=== PATIENT | female | born 1980 | race Caucasian/White ===

== ENCOUNTER 2019-08-01 14:01 | Inpatient (IN) | payer BC ==
[2019-08-01] MEDS ORDERED: MORPHINE 4 MG/ML SYR ONE ×2 (14:51→16:44)
[2019-08-01] MEDS ORDERED: ONDANSETRON 4 MG/2 ML VIAL ONE (14:52)
[2019-08-01] MEDS ORDERED: NA CHLORIDE 0.9% 1,000 ML ONE (14:52)
[2019-08-01 14:57] LABS: Absolute Lymphocytes (CBC) 2.4 K/uL (0.7-4.9); Basophils % 0.4 % (0-1.3); Hematocrit 42.3 % (36.0-45.0); Lymphocytes % 12.8 % (15.3-44.8); MPV 9.6 fL (7.6-11.3); RBC Red Blood Cell Count 6.78 M/uL (3.86-4.86)
[2019-08-01 15:25] LABS: Albumin 3.2 g/dL (3.4-5.0); Bilirubin Direct 0.1 mg/dL (0-0.2); Bilirubin Total 0.5 mg/dL (0.2-1.0); Potassium 4.4 mmol/L (3.5-5.1); Protein, Total 7.5 g/dL (6.4-8.2)
--- NOTE | 2019-08-01 16:11 | RAD REPORT ---
EXAM DESCRIPTION: CT - Abdomen Pelvis W Contrast - 08/01/2019 3:51 pm CLINICAL HISTORY: ABD PAINlower abdominal pain, nausea and vomiting COMPARISON: None. TECHNIQUE: Biphasic, helical CT imaging of the abdomen and pelvis was performed following 100 ml non -ionic IV contrast. No oral contrast administered. All CT scans are performed using dose optimization technique as appropriate and may include automated exposure control or mA/KV adjustment according to patient size. FINDINGS: No suspicious findings in the lung bases. No pericardial thickening or effusion. Liver size is normal. No focal liver lesions seen. Gallbladder and biliary tree show no suspicious fi ndings. No pancreatic abnormality identified. There is a small quantity of fluid along the anterior s uperior liver and adjacent to lower medial margin of the right lobe. Larger fluid collection surround s the normal size spleen. Arterial phase imaging shows heterogeneity of the splenic parenchyma which is commonly seen. Splenic tissue is more homogeneous on venous phase imaging. The fluid is concentrat ed around the spleen than attenuation value under 10 Hounsfield units. Free fluid is present in the p justice attenuation value approximately 30 Hounsfield units. Symmetric renal function is seen with no hydronephrosis or suspicious renal mass. No pyelonephritis o r acute parenchymal process. Urinary bladder is fully contracted. No adrenal abnormalities. No gastric dilatation or gastric wall thickening. Jejunum is normal. The majority of the ileum includ ing the terminal ileum shows circumferential wall thickening and edema. There is stranding and minima l fluid in the mesenteric tissues adjacent to the involved ileum. Appendix is normal. Cecum and ascen ding colon are not involved. Remainder of the colon is without acute finding. A small or atrophic uterus is present. No ovarian mass identifiable. No free air or pneumatosis. No hernia, mass or bulky lymphadenopathy. No suspicious bony findings. IMPRESSION: Prominent ileitis pattern involving the majority of the ileum including the terminal ile um. Jejunum and cecum are not involved. No free air, abscess or surgically emergent finding. Fluid in the pelvis is relatively high in attenuation value of 30 Hounsfield units. There is focal fl uid collecting around the spleen. Fluid is likely reactive. However, the concentration of fluid around the spleen could indicate spleni c capsule rupture or leakage. The low value of the fluid around the spleen would indicate that if thi s is blood etiology it is many days old. No high-density fluid or active extravasation seen adjacent to the spleen.
[2019-08-01 16:27] LABS: Urine Blood NEGATIVE (NEG); Urine Glucose NEGATIVE (NEG); Urine Protein 1+ (NEG); Urine Specific Gravity >1.030 (1.005-1.030); Urine pH 5.5 (5.0-7.0)
--- NOTE | 2019-08-01 16:32 | ER ---
Nurse's Notes [facility] Name: Moriah Garcia Age: 38 yrs Sex: Female : 1980 Arrival Date: 08/01/2019 Time: 14:04 Bed 30 Private MD: Nikko Whiteside Diagnosis: Ileitis Presentation: 08/01 14:26 Presenting complaint: Worsening lower abdominal pain x 6 days, N/V today. Not hb tolerating fluids. Transition of care: patient was not received from another setting of care. Onset of symptoms was July 26, 2019. Risk Assessment: Do you want to hurt yourself or someone else? Patient reports no desire to harm self or others. Care prior to arrival: None. 14:26 Method Of Arrival: Ambulatory hb 14:26 Acuity: ZUHAIR 3 hb 15:27 Initial Sepsis Screen: Does the patient meet any 2 criteria? No. Patient's initial rv sepsis screen is negative. Does the patient have a suspected source of infection? No. Patient's initial sepsis screen is negative. 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 - Social history:: Smoking status: Patient/guardian denies using tobacco. - Ebola Screening: : No symptoms or risks identified at this time. Screenin:24 Abuse screen: Denies threats or abuse. Denies injuries from another. Nutritional rv screening: No deficits noted. Tuberculosis screening: No symptoms or risk factors identified. Fall Risk None identified. Assessment: 14:45 General: Appears in no apparent distress. uncomfortable, Behavior is calm, cooperative. rv 15:21 Pain: Complains of pain in pablito umbilical. Neuro: Level of Consciousness is awake, rv alert, obeys commands, Oriented to person, place, time, situation. Cardiovascular: Patient's skin is warm and dry. Respiratory: Airway is patent. GI: Bowel sounds present X 4 quads. Abd is soft and non tender X 4 quads. : No signs and/or symptoms were reported regarding the genitourinary system. EENT: No signs and/or symptoms were reported regarding the EENT system. Derm: Skin is intact. Musculoskeletal: No signs and/or symptoms reported regarding the musculoskeletal system. 15:46 Reassessment: patient taken to CT scan. rv Vital Signs: 14:28 BP 161 / 106; Pulse 113; Resp 16; Temp 96.7; Pulse Ox 96% on R/A; Weight 129.27 kg; hb Height 5 ft. 5 in. (165.10 cm); Pain 6/10; 15:42 Pain 2/10; rv 15:46 BP 124 / 73; Pulse 84; Resp 16; Pulse Ox 98% on R/A; rv 17:00 BP 127 / 81; Pulse 86; Resp 15; Pulse Ox 97% on R/A; rv 18:00 BP 126 / 76; Pulse 81; Resp 15; Pulse Ox 97% on R/A; rv 14:28 Body Mass Index 47.43 (129.27 kg, 165.10 cm) hb ED Course: 14:04 Patient arrived in ED. mr 14:05 Nikko Whiteside MD is Private Physician. mr 14:28 Triage completed. hb 14:28 Arm band placed on. hb 14:37 Marcos Carrillo NP is PHCP. pm1 14:37 Nigel Campuzano MD is Attending Physician. pm1 14:50 Inserted saline lock: 20 gauge in left antecubital area, using aseptic technique. Blood rv collected. 15:21 Jonathon Pal RN is Primary Nurse. rv 15:27 Patient has correct armband on for positive identification. Bed in low position. Call rv light in reach. Side rails up X 1. Pulse ox on. NIBP on. 16:25 Kim Ruiz MD is Hospitalizing Provider. pm1 16:47 Telma Ashby MD is Hospitalizing Provider. pm1 18:08 No provider procedures requiring assistance completed. Patient admitted, IV remains in rv place. Administered Medications: 14:50 Drug: NS 0.9% 1000 ml Route: IV; Rate: 1000 ml; Site: right antecubital; rv 18:05 Follow up: IV Status: Completed infusion; IV Intake: 1000ml rv 14:50 Drug: morphine 4 mg {Note: rass 0.} Route: IVP; Site: left antecubital; rv 15:30 Follow up: Response: No adverse reaction; Marked relief of symptoms; Pain is decreased rv 15:42 Follow up: Pain 2/10 Adult; Response: No adverse reaction; Marked relief of symptoms; rv Pain is decreased; RASS: Alert and Calm (0) 14:50 Drug: Zofran 4 mg Route: IVP; Site: left antecubital; rv 15:42 Follow up: Response: No adverse reaction rv 16:55 Drug: morphine 4 mg Route: IVP; Site: left antecubital; rv 17:33 Follow up: Response: No adverse reaction; Marked relief of symptoms; Pain is decreased; rv RASS: Alert and Calm (0) 17:39 Drug: Zosyn 3.375 grams Route: IVPB; Infused Over: 60 mins; Site: right antecubital; rv 18:06 Follow up: IV Status: Completed infusion rv Intake: 18:05 IV: 1000ml; Total: 1000ml. rv Outcome: 16:31 Decision to Hospitalize by Provider. pm1 18:09 Admitted to Tele accompanied by nurse, accompanied by tech, room 407, with chart, rv Report called to FEMALE RN ON 4TH FLR 18:09 Condition: stable 18:09 Instructed on the need for admit. 18:10 Patient left the ED. rv Signatures: Sylvia Castañeda GerardoMarcos, MANAGER ASSISTED LIVING MANAGER ASSISTED LIVING pm1 Deyaniar Awad, LEIGH RN Jonathon Dubon RN RN rv Corrections: (The following items were deleted from the chart) 15:27 15:21 General: Appears in no apparent distress. uncomfortable, Behavior is calm, rv cooperative, rv
--- NOTE | 2019-08-01 16:33 | EDPHYS ---
Physician Documentation [facility] Name: Moriah Garcia Age: 38 yrs Sex: Female : 1980 Arrival Date: 08/01/2019 Time: 14:04 Bed 30 Private MD: Nikko Whiteside ED Physician Nigel Campuzano HPI: 08/01 15:16 This 38 yrs old Female presents to ER via Ambulatory with complaints of pm1 Abdominal Pain. 15:16 The patient presents with abdominal pain that is diffuse. Onset: The symptoms/episode pm1 began/occurred 6 day(s) ago. The symptoms do not radiate. Associated signs and symptoms: Pertinent positives: nausea and vomiting, Pertinent negatives: chest pain, constipation, diarrhea, dysuria, fever, shortness of breath. The symptoms are described as constant, sharp. Modifying factors: The symptoms are alleviated by nothing, the symptoms are aggravated by food. Severity of pain: in the emergency department the pain is actually worse. The patient has not experienced similar symptoms in the past. The patient has been recently seen by a physician: the patient's primary care provider, Dr. Whiteside with similar presenting complaints, and was sent to the [facility] Emergency Department for further evaluation. 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 - Social history:: Smoking status: Patient/guardian denies using tobacco. - Ebola Screening: : No symptoms or risks identified at this time. ROS: 15:16 Constitutional: Negative for fever, chills, and weight loss, Eyes: Negative for injury, pm1 pain, redness, and discharge, ENT: Negative for injury, pain, and discharge, Neck: Negative for injury, pain, and swelling, Cardiovascular: Negative for chest pain, palpitations, and edema, Respiratory: Negative for shortness of breath, cough, wheezing, and pleuritic chest pain. 15:16 Back: Negative for injury and pain, : Negative for injury, bleeding, discharge, and swelling, MS/Extremity: Negative for injury and deformity, Skin: Negative for injury, rash, and discoloration, Neuro: Negative for headache, weakness, numbness, tingling, and seizure. 15:16 Abdomen/GI: Positive for abdominal pain, nausea and vomiting, Negative for diarrhea, constipation. Exam: 15:16 Constitutional: This is a well developed, well nourished patient who is awake, alert, pm1 and in no acute distress. Head/Face: Normocephalic, atraumatic. Neck: Trachea midline, no thyromegaly or masses palpated, and no cervical lymphadenopathy. Supple, full range of motion without nuchal rigidity, or vertebral point tenderness. No Meningismus. Chest/axilla: Normal chest wall appearance and motion. Nontender with no deformity. No lesions are appreciated. Cardiovascular: Regular rate and rhythm with a normal S1 and S2. No gallops, murmurs, or rubs. Normal PMI, no JVD. No pulse deficits. Respiratory: Lungs have equal breath sounds bilaterally, clear to auscultation and percussion. No rales, rhonchi or wheezes noted. No increased work of breathing, no retractions or nasal flaring. 15:16 Back: No spinal tenderness. No costovertebral tenderness. Full range of motion. Skin: Warm, dry with normal turgor. Normal color with no rashes, no lesions, and no evidence of cellulitis. MS/ Extremity: Pulses equal, no cyanosis. Neurovascular intact. Full, normal range of motion. 15:16 Abdomen/GI: Inspection: obese Bowel sounds: normal, Palpation: soft, moderate abdominal tenderness, in the right upper quadrant and right lower quadrant, mass, is not appreciated, rebound tenderness, is not appreciated. 15:16 Neuro: Orientation: is normal, Motor: is normal, moves all fours, Sensation: is normal, no obvious gross deficits. Vital Signs: 14:28 BP 161 / 106; Pulse 113; Resp 16; Temp 96.7; Pulse Ox 96% on R/A; Weight 129.27 kg; hb Height 5 ft. 5 in. (165.10 cm); Pain 6/10; 15:42 Pain 2/10; rv 15:46 BP 124 / 73; Pulse 84; Resp 16; Pulse Ox 98% on R/A; rv 17:00 BP 127 / 81; Pulse 86; Resp 15; Pulse Ox 97% on R/A; rv 18:00 BP 126 / 76; Pulse 81; Resp 15; Pulse Ox 97% on R/A; rv 14:28 Body Mass Index 47.43 (129.27 kg, 165.10 cm) hb MDM: 14:37 Patient medically screened. pm1 15:19 Data reviewed: vital signs. Data interpreted: Pulse oximetry: on room air is 96 %. pm1 Interpretation: normal. 16:20 Physician consultation: Amadou Gibbons MD was contacted at 16:20, regarding consult, pm1 patient's condition, and will see patient in ED, shortly, would like further tests performed, Lactate, would like medications started, Zosyn. 16:24 Counseling: I had a detailed discussion with the patient and/or guardian regarding: the pm1 historical points, exam findings, and any diagnostic results supporting the discharge/admit diagnosis, lab results, radiology results, the need for further work-up and treatment in the hospital. 16:39 Physician consultation: Telma Ashby MD was contacted at 16:39, regarding admission, pm1 patient's condition, and will see patient. 16:47 Physician consultation: Amadou Gibbons MD would like consultation with Dr. GI. Jensen is pm1 on-call. 08/01 14:38 Order name: Basic Metabolic Panel pm1 08/01 14:38 Order name: CBC with Diff pm1 08/01 14:38 Order name: Creatinine for Radiology pm1 08/01 14:38 Order name: Hepatic Function pm1 08/01 14:38 Order name: Lipase pm1 08/01 15:01 Order name: CBC with Automated Diff EDMS 08/01 15:18 Order name: Creatinine (Radiology Only); Complete Time: 15:19 EDMS 08/01 15:26 Order name: Basic Metabolic Panel; Complete Time: 16:13 EDMS 08/01 15:26 Order name: Liver (Hepatic) Function; Complete Time: 16:13 EDMS 08/01 15:26 Order name: Lipase; Complete Time: 16:13 EDMS 08/01 15:50 Order name: CBC Smear Scan EDMS 08/01 15:51 Order name: Urine Dipstick--Ancillary (enter results); Complete Time: 16:33 em1 08/01 15:51 Order name: Urine --Ancillary (enter results); Complete Time: 16:33 em1 08/01 16:20 Order name: Lactate; Complete Time: 17:28 pm1 08/01 14:38 Order name: IV Saline Lock; Complete Time: 15:30 pm1 08/01 14:38 Order name: Labs collected and sent; Complete Time: 15:30 pm1 08/01 14:38 Order name: Urine Dipstick-Ancillary (obtain specimen); Complete Time: 15:43 pm1 08/01 14:38 Order name: Urine Test (obtain specimen); Complete Time: 15:43 pm1 08/01 14:42 Order name: CT Abd/Pelvis - IV Contrast Only pm1 08/01 14:42 Order name: NPO; Complete Time: 15:30 pm1 08/01 16:22 Order name: Blood Culture Adult (2) pm1 Administered Medications: 14:50 Drug: NS 0.9% 1000 ml Route: IV; Rate: 1000 ml; Site: right antecubital; rv 18:05 Follow up: IV Status: Completed infusion; IV Intake: 1000ml rv 14:50 Drug: morphine 4 mg {Note: rass 0.} Route: IVP; Site: left antecubital; rv 15:30 Follow up: Response: No adverse reaction; Marked relief of symptoms; Pain is decreased rv 15:42 Follow up: Pain 2/10 Adult; Response: No adverse reaction; Marked relief of symptoms; rv Pain is decreased; RASS: Alert and Calm (0) 14:50 Drug: Zofran 4 mg Route: IVP; Site: left antecubital; rv 15:42 Follow up: Response: No adverse reaction rv 16:55 Drug: morphine 4 mg Route: IVP; Site: left antecubital; rv 17:33 Follow up: Response: No adverse reaction; Marked relief of symptoms; Pain is decreased; rv RASS: Alert and Calm (0) 17:39 Drug: Zosyn 3.375 grams Route: IVPB; Infused Over: 60 mins; Site: right antecubital; rv 18:06 Follow up: IV Status: Completed infusion rv Disposition: 21:50 Co-signature as Attending Physician, Nigel Campuzano MD Available for consultation at ps1 all times . Disposition: 08/01/19 16:31 Hospitalization ordered by Telma Ashby for Inpatient Admission. Preliminary diagnosis is Ileitis. - Bed requested for Telemetry/MedSurg (Inpatient). - Status is Inpatient Admission. rv - Condition is Stable. - Problem is new. - Symptoms have improved. UTI on Admission? No Signatures: Dispatcher [employer] EDMS Christopher Crabtree em1 Marcos Carrillo, FLIGHT AGENT FLIGHT AGENT pm1 Deyanira Awad, RN RN Nigel Campuzano MD MD [facility] Jonathon Pal, LEIGH RN rv Corrections: (The following items were deleted from the chart) 16:47 16:31 Hospitalization Ordered by Kim Ruiz MD for Inpatient Admission. Preliminary pm1 diagnosis is Ileitis. Bed requested for Telemetry/MedSurg (Inpatient). Status is Inpatient Admission. Condition is Stable. Problem is new. Symptoms have improved. UTI on Admission? No. pm1 17:01 16:47 08/01/2019 16:31 Hospitalization Ordered by Telma Ashby MD for Inpatient em1 Admission. Preliminary diagnosis is Ileitis. Bed requested for Telemetry/MedSurg (Inpatient). Status is Inpatient Admission. Condition is Stable. Problem is new. Symptoms have improved. UTI on Admission? No. pm1 18:10 17:01 08/01/2019 16:31 Hospitalization Ordered by Telma Ashby MD for Inpatient rv Admission. Preliminary diagnosis is Ileitis. Bed requested for Telemetry/MedSurg (Inpatient). Status is Inpatient Admission. Condition is Stable. Problem is new. Symptoms have improved. UTI on Admission? No. em1
[2019-08-01] MEDS ORDERED: PIPER/TAZO/NS 3.375gm 3.375 GM/100 ML BAG ONE (17:00)
[2019-08-01 18:21] LABS: Blood Morphology Comment NOTED (NOT SEEN); Hypochromasia 1+; Ovalocytes 1+; Platelet Estimate ADEQ; Urine White Blood Cell Casts OK
[2019-08-01] MEDS: D5 0.45 NS 1,000 ML IV SCH (18:58)
[2019-08-01 19:25] VITALS: BMI 47.5
[2019-08-01] MEDS: MORPHINE 2 MG/ML SYR IV PRN (21:00)
--- NOTE | 2019-08-01 22:15 | HP ---
Date of Admission: 08/01/2019 Chief Complaint: Abdominal pain. History Of Present Illness: The patient is a 38-year-old female with past medical history of PCOS, hypothyroidism, Jemal's, and was in her usual state of health until approximately 6 days prior to admission when the patient had sudden onset of generalized abdominal pain along with some nausea and vomiting. Patient had decrease in appetite. Denies any ill contacts, travel outside the country or unusual foods. Reports some subjective fevers. Pain was radiating outward from the umbilicus. Patient went to go see her primary care physician and was referred to the ER for further evaluation. In the ER, she was tachycardic. Blood pressure was elevated. White blood cell count was 18,000. CT scan showed ileitis. Surgical consultation was sought by the ER and Dr. Gibbons evaluated the patient, recommended conservative treatment with IV antibiotics. When the patient was seen, she was awake, alert, oriented x3, in pain. She received 8 mg of morphine with some relief. Past Medical History: PCOS, hypothyroidism. Past Surgical History: None. Allergies: TO NSAIDS, ASPIRIN CAUSES HIVES. Medications: As per medication reconciliation list. Social History: Patient denies any tobacco use, alcohol use, or illicit drug use. 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 Family History: Positive for PCOS, hypothyroidism. Review of Systems: Ten-point system reviewed, negative except as per HPI. Physical Examination: Vital Signs: Blood pressure 161/106, heart rate 113, respirations 16, temperature 96.7, O2 96% on room air. General: Awake, alert, oriented x3. Morbidly obese female in moderate amount of distress due to abdominal pain, ill-appearing. HEENT: Normocephalic, atraumatic. PERRLA. EOMI. Dry mucous membranes. Oropharynx is clear. Normal dentition. Conjunctiva is anicteric. Neck: Supple. No JVD. Trachea midline. CV: S1, S2. Sinus tachycardia. Peripheral pulses present. No murmurs. Respiratory: Clear to auscultation bilaterally. No wheezing or stridor. No use of accessory muscles. Gastrointestinal: Abdomen is soft. Mild distention. Tenderness to palpation. Bowel sounds are hypoactive. Extremities: No clubbing, cyanosis, or edema. No calf tenderness. Neuro: Cranial nerves 2 through 12 intact grossly. No focal neurological deficit. Speech is normal. Skin: No rashes. Normal skin turgor. Psych: Mood is okay. Affect is full. Insight and judgment are good. Laboratory Data: Sodium 139, potassium 4.4, chloride 108, CO2 of 22, BUN 11, creatinine 0.99, glucose 112, lactate 0.7, calcium 8.8, AST 12, ALT 23, albumin 3.2, lipase 109. WBC 18.5, H and H of 13.2 and 42.3, platelets 383, neutrophils 82%. UA is negative. test is also negative. Imaging Studies: CT scan of the abdomen and pelvis personally reviewed shows prominent ileitis pattern involving the majority of the ileum including the terminal ileum. Jejunum and cecum are not involved. No free air, abscess, or surgically emergent finding. Fluid in the pelvis is relatively high in attenuation value. Focal fluid collecting around the spleen, likely reactive. Possible splenic capsule rupture or leakage, possibly blood many days old. No high density fluid or active extravasation seen adjacent to the spleen. Assessment: A 38-year-old female with: 1. Acute generalized abdominal pain secondary to ileitis. We will continue with IV antibiotics with Zosyn and continue with n.p.o. status along with pain medications. Appreciate Dr. Gibbons's input. He has reviewed the CT scan and the patient does not feel that there is any splenic rupture. Does not recommend any surgical intervention at this time. Patient does have an elevated white blood cell count, is tachycardic. Lactate, however, is normal. We will continue with IV fluid resuscitation as well. 2. Morbid obesity. 3. Polycystic ovary syndrome. 4. Jemal's thyroiditis. We will resume home medications as appropriate. 5. Alpha thalassemia. Non transfusion dependant. Monitor HH. Plan: Admit the patient to Med-Surg, place as inpatient. Length of stay greater than 2 midnights. /BHAVANA Voice ID: [id number] [email or web address]
[2019-08-02] MEDS: PIPER/TAZO/NS 3.375gm 3.375 GM/100 ML BAG IVPB SCH ×3 (00:50→16:48)
[2019-08-02] MEDS: MORPHINE 2 MG/ML SYR IV PRN ×3 (04:01→17:59)
[2019-08-02] MEDS: D5 0.45 NS 1,000 ML IV SCH ×3 (04:05→14:24)
[2019-08-02 04:51] LABS: Absolute Lymphocytes (CBC) 2.7 K/uL (0.7-4.9); Basophils % 0.7 % (0-1.3); Hematocrit 34.2 % (36.0-45.0); Lymphocytes % 21.6 % (15.3-44.8); MPV 9.4 fL (7.6-11.3); RBC Red Blood Cell Count 5.48 M/uL (3.86-4.86)
[2019-08-02 05:19] LABS: Potassium 4.1 mmol/L (3.5-5.1)
--- NOTE | 2019-08-02 09:50 | P.PN ---
Subjective Date of Service: 08/02/19 Subjective: Improving (PAtient feels much better today, no emesis, no nausea) Physical Examination - Vital Signs Temperature: 97.4 F Blood Pressure: 114/54 Pulse: 69 Respirations: 18 Pulse Ox (%): 96 - Physical Exam General: Alert, In no apparent distress, Cooperative Gastrointestinal: Other (soft, mild right sided RLQ abdominal tenderness, improved from prior exam) - Studies Laboratory Data (last 24 hrs) 08/01/19 14:50: Creatinine 1.03 08/01/19 14:50: WBC 18.5 H, Hgb 13.2, Hct 42.3, Plt Count 383 08/01/19 14:50: Sodium 139, Potassium 4.4, BUN 11, Creatinine 0.99, Glucose 112 H, Total Bilirubin 0.5, AST 12 L, ALT 23, Alkaline Phosphatase 84, Lipase 109 Assessment And Plan - Current Problems (Diagnosis) (1) Ileitis Current Visit: Yes Status: Acute Plan: - start clears - serial exams - medical management
[2019-08-02] MEDS: ONDANSETRON 4 MG/2 ML VIAL IV PRN ×2 (11:30→19:16)
--- NOTE | 2019-08-02 14:37 | CON ---
Date of Consultation: 08/01/2019 Brief History Of Present Illness: Patient is a 38-year-old female with past medical histor y of PCOS, hypothyroidism, Jemal thyroiditis, and thalassemia, who was in her usual state of heal th until approximately 6 days prior to admission when she had sudden onset of generalized abdominal p ain along with some nausea and vomiting. She had decreased appetite. She denies any sick contacts, recent travel, no new food exposures. It was associated with subjective fevers and stayed in the [facility] region. She went to her primary care physician who recommended she come to the ER for tiara luation. Past Medical History: Significant for PCOS, hypothyroidism, Jemal thyroiditis, and thalassemia. Past Surgical History: Negative. Allergies: NSAIDS, ASPIRIN, COCONUT, IBUPROFEN, PEANUTS. Medications: Include at home Synthroid, Ventolin, vitamin D2, Loren, lisinopril, Singulair, Aldacto ne. Social History: She denies smoking, alcohol, or recreational drug use. She works in the [employer] in [place]. Family History: Positive for PCOS, hypothyroidism, and thalassemia. Review of Systems: 10-point review of systems other than HPI, denies. Physical Examination: Vital Signs: At the time of examination, her BMI is 47.6. Her blood pressure was 120/56, pulse was 71, respiratory rate 17, temperature 97.6. General: She is awake, alert, and oriented. Psychiatric: She is appropriate and conversive. She is no apparent distress. HEENT: Normocephalic. Sclerae are anicteric. Mucous membranes are moist. Oropharynx is clear. Neck: Supple. No JVD. Chest: Normal expansion and excursion. Cardiovascular: Regular rate and rhythm. Pulmonary: Clear to auscultation bilaterally. Abdomen: Soft, obese with positive global tenderness to palpation, worse in the periumbilical region and infraumbilical region. No rebound. No guarding. No focal peritonitis. Merlos sign is negativ e. Extremities: No clubbing, cyanosis, or edema. Diagnostic Data: Laboratory exam reveals a white blood cell count of 18.5, hemoglobin of 13.2, hemat ocrit of 42.3, platelet count is 383, neutrophils are 82%. Sodium 139, potassium 4.4, chloride of 10 8, carbon dioxide 22, BUN 11, creatinine 1.3, glucose is 112. Lactic acid 0.7. Total bilirubin 0.5, direct component 0.8. AST 12, ALT 23, alkaline phosphatase is 84. Lipase is 109. UA was essential ly negative. She had imaging performed, which included a CT of the abdomen and pelvis, officially read as prominen t ileitis pattern involving the majority of the ileum including the terminal ileum. Jejunum and cecu m are not involved. No free air, abscess, or surgically emergent findings. Fluid in the pelvis is r elatively high in attenuation with a value 30 Hounsfield units. There is focal fluid collecting arou nd the spleen. Fluid is likely reactive; however, a concentration of fluid around the spleen could i ndicate splenic capsule rupture or leakage. The low value of the fluid around the spleen would indic ate that if this is blood, etiology may be days old. No high-density fluid or active extravasation s een on adjacent spleen. Assessment And Plan: This is a 38-year-old female who comes in with likely ileitis. 1.I would recommend IV fluid hydration. 2.Antibiotic coverage. 3.Serial abdominal exams. 4.Electrolyte correction. 5.Continue medical management. 6.I will follow along with you. I have explained the risks, benefits, and alternatives of the above-stated plan. Patient agrees to proceed as indicated. SHAISTA/BHAVANA Voice ID: [id number] Report ID: [id number]
--- NOTE | 2019-08-02 15:25 | PN ---
Date of Progress Note: 08/02/2019 Subjective: Patient is seen and examined. Chart reviewed and case discussed with RN and Dr. Gibbons . The patient states her pain is better, however, still having some nausea, requiring pain medicatio ns through IV. Mother at the bedside. Treatment plan explained. All questions answered. Medications: List reviewed. Physical Examination: Vital Signs: Temperature 97.4, heart rate 69, blood pressure 114/54, respirations 18, O2 of 96% on r oom air. General: Awake, alert, oriented x3. Morbidly obese female, somewhat ill-appearing. CV: S1, S2. Regular rate and rhythm. Peripheral pulses present. Respiratory: Moving air well bilaterally. No wheezing or stridor. Gastrointestinal: Abdomen is soft. Mild tenderness to palpation. No rebound or guarding. No rigid ity. Bowel sounds positive. Extremities: No clubbing, cyanosis, or edema. Neuro: Cranial nerves 2 through 12 intact grossly. No focal neurological deficits. Skin: Normal skin turgor. No rashes. Laboratory Data: WBC 12.4, H and H 11.1 and 34.2, platelets 289, neutrophils 70%. Sodium 140, potas sium 4.1, chloride 109, CO2 of 25, BUN 10, creatinine 0.92, glucose 116, calcium 7.6. Blood cultures , no growth to date. Assessment: A 38-year-old female with. 1.Acute generalized abdominal pain, improving. 2.Ileitis. We will continue with IV antibiotics. We will start on clear liquids. Continue antieme tics. Appreciate Dr. Gibbons's input. WBC count is improving. Cultures are pending at this time. 3.Jemal's thyroid disease. Continue home medications. 4.Polycystic ovarian syndrome. Continue spironolactone. 5.Morbid obesity. BMI of 47. 6.Thalassemia. Patient is unsure if it is alpha or beta. We will continue to monitor H and H, farris sfuse as needed. Plan: Likely discharge in the next 24 hours depending on clinical response. Advance diet as tolerat ed. Patient will need outpatient GI followup for a scope once inflammation has diminished and resolv ed. SA/MODL Voice ID: [id number] Report ID: [id number]
[2019-08-02] MEDS: ALBUTEROL 2.5 MG/3 ML NEB SOL NEB PRN (17:02)
[2019-08-02] MEDS ORDERED: TRAMADOL HCL 50 MG TAB PO PRN (19:29)
[2019-08-02] MEDS ORDERED: HYDROCODONE/APAP 7.5/325 MG TAB PO PRN (19:29)
[2019-08-02] MEDS ORDERED: LEVOTHYROXINE SOD 0.1 MG TAB PO SCH (21:00)
[2019-08-02] MEDS ORDERED: ETHINYL ESTRADIOL PO SCH (21:00)
[2019-08-02] MEDS ORDERED: LEVOTHYROXINE SOD 0.075 MG TAB PO SCH (21:00)
[2019-08-02] MEDS ORDERED: MONTELUKAST 10 MG TAB PO SCH (21:00)
[2019-08-02] MEDS ORDERED: LISINOPRIL 10 MG TAB PO SCH (21:00)
[2019-08-02] MEDS ORDERED: SYNTHROID 175 MCG PO SCH (21:00)
[2019-08-02] MEDS ORDERED: SPIRONOLACTONE 100 MG TAB PO SCH (21:00)
[2019-08-02] MEDS ORDERED: DROSPIRENONE PO SCH (21:00)
[2019-08-03] MEDS: PIPER/TAZO/NS 3.375gm 3.375 GM/100 ML BAG IVPB SCH ×2 (00:38→08:01)
[2019-08-03] MEDS: D5 0.45 NS 1,000 ML IV SCH ×2 (02:00→12:27)
[2019-08-03 04:16] LABS: Absolute Lymphocytes (CBC) 2.8 K/uL (0.7-4.9); Basophils % 0.7 % (0-1.3); Hematocrit 30.8 % (36.0-45.0); Lymphocytes % 33.3 % (15.3-44.8); MPV 9.6 fL (7.6-11.3); RBC Red Blood Cell Count 4.88 M/uL (3.86-4.86)
[2019-08-03 04:23] LABS: Potassium 3.9 mmol/L (3.5-5.1)
[2019-08-03] MEDS: ALBUTEROL 2.5 MG/3 ML NEB SOL NEB PRN (06:15)
[2019-08-03 06:30] VITALS: O2SAT 99
[2019-08-03] MEDS: ONDANSETRON 4 MG/2 ML VIAL IV PRN (09:40)
[2019-08-03 12:26] VITALS: BP 124/68; TEMP 97.4
--- NOTE | 2019-08-04 06:30 | DS ---
Date of Discharge: 08/03/2019 Consultants: Dr. Gibbons with General Surgery, Dr. Jensen with GI. Procedures: None. Admitting Diagnoses: 1.A 38-year-old female with acute generalized abdominal pain secondary to ileitis. 2.Morbid obesity. 3.Polycystic ovarian syndrome. 4.Jemal thyroiditis. 5.Alpha thalassemia. Discharge Diagnoses: 1.Acute generalized abdominal pain, resolved. 2.Ileitis, improving. 3.Jemal thyroid disease, stable. 4.Polycystic ovarian syndrome, stable. 5.Morbid obesity. BMI 47. 6.Alpha thalassemia. Hospital Course: The patient is a 38-year-old female with past medical history of PCOS, hypothyroidi sm, who was in her usual state of health until she started having generalized abdominal pain. The annmarie cutler was admitted for further evaluation. Her white count was elevated at 18,000. CT scan showed i leitis. The patient was admitted for further treatment. General Surgery, Dr. Gibbons was consulted, who did not recommend any surgical intervention. There was some questionable blood around the splee n, however, this was felt to just be splenomegaly. The patient does have thalassemia. The patient's hemoglobin remained stable. Her blood pressure improved. She was hypertensive when she came in. T he patient's white blood cell count normalized. She responded well to IV antibiotics and IV fluids. The patient was slowly started on clear liquid diet, which she tolerated. She was advanced to full liquid diet. She did have some nausea and vomiting subsequent to that, however, was able to tolerate her diet with medications. The patient was able to ambulate without difficulty. Overall, the patie nt did well. She was seen by GI, Dr. Jensen, who recommended outpatient workup including colonosco py, EGD once inflammation has resolved and also PillCam to rule out inflammatory bowel disease includ ing Crohn's or ulcerative colitis. The patient was then cleared for discharge. She was sent home in a stable condition. Activity: As tolerated. Medications: As per medication reconciliation list. Followup: Follow up with primary care physician in 2 to 3 days. Follow up with surgeon, Dr. Gibbons in 2 weeks. Follow up with GI, Dr. Jensen in 2 weeks. Return to ER for worsening condition. Diet: Full liquids. Continue to hydrate. Physical Examination: General: Awake, alert, oriented x3. Morbidly obese female, not in any acute distress. CV: S1, S2. No murmurs. Respiratory: Moving air well bilaterally. Abdomen: Abdomen is soft, nontender, nondistended. Positive bowel sounds. Extremities: No clubbing, cyanosis, or edema. Neurologic: Nonfocal. Total time spent discharging patient was 38 minutes. THEODORA Voice ID: [id number] Report ID: [id number]
== END 2019-08-03 14:21 | disposition home or self-care (01) | DRG 392 ==
LOC: ER 14:01 → ERHOLD 16:47 → 4TH 18:05
PROVIDERS: ADMIT Family Medicine; ATTEND Family Medicine
DX: K52.9 Noninfective gastroenteritis and colitis, unspecified (principal); Z68.42 Body mass index [BMI] 45.0-49.9, adult; E06.3 Autoimmune thyroiditis; E28.2 Polycystic ovarian syndrome; E66.9 Obesity, unspecified; D56.0 Alpha thalassemia; Z88.6 Allergy status to analgesic agent; Z91.010 Allergy to peanuts
CPT/HCPCS: 36415; 74177; 80048; 80076; 81003; 81025; 83605; 83690; 85025; 87040; 94760; 96361; 96365; 96375; 99285; J2270; J2405; J2543; J7030; Q9967

== ENCOUNTER 2020-07-18 13:31 | Observation (INO) | payer BC ==
--- OUTSIDE RECORDS SUMMARY | 2020-07-18 13:33 | XMS REPORT | Continuity of Care Document ---
:1980 Author Organization [facility] t Address [address] [place] [address] Care Team Providers Name Role Phone Bryant Jensen MD Attending Clinician Team, Health Maintenance Attending Clinician Unavailable Huseyin ABRAHAM, A Attending Clinician Unavailable Problems This patient has no known problems. Allergies, Adverse Reactions, Alerts This patient has no known allergies or adverse reactions. Medications This patient has no known medications. Procedures This patient has no known procedures. Encounters Start End Encounter Admission Attending Care Care Encounter Source Date/Time Date/Time Type Type Clinicians Facility Department ID 2019-12-26 2019-12-26 [facility] [id number] 09:37:00 23:59:00 Encounter Dano Mckeon [id number] [place] [id number] [place] [id number] 2019-08-17 2019-08-17 Telephone Team, [facility] YULIANA [id number] 00:00:00 00:00:00 Health ROSA [id number] [facility] [id number] 2019-08-17 2019-08-17 Transition YULIANA [id number] 00:00:00 00:00:00 of Care [place] Leora LEE [id number] [facility] [id number] 2019-08-15 2019-08-15 Transition YULIANA [id number] 00:00:00 00:00:00 [facility] Surinder LEE [id number] [facility] [id number] Results This patient has no known results.
[2020-07-18] MEDS ORDERED: MORPHINE 4 MG/ML SYR ONE ×2 (14:17→16:26)
[2020-07-18] MEDS ORDERED: ONDANSETRON 4 MG/2 ML VIAL ONE ×2 (14:18→16:26)
[2020-07-18] MEDS ORDERED: NA CHLORIDE 0.9% 1,000 ML ONE (14:18)
[2020-07-18 14:20] LABS: Absolute Lymphocytes (CBC) 2.1 K/uL (0.7-4.9); Basophils % 0.8 % (0-1.3); Hematocrit 44.1 % (36.0-45.0); MPV 9.6 fL (7.6-11.3); RBC Red Blood Cell Count 7.04 M/uL (3.86-4.86)
[2020-07-18 14:36] LABS: Albumin 3.1 g/dL (3.4-5.0); Bilirubin Direct 0.1 mg/dL (0-0.2); Bilirubin Total 0.6 mg/dL (0.2-1.0); Potassium 4.4 mmol/L (3.5-5.1); Protein, Total 7.8 g/dL (6.4-8.2)
[2020-07-18 14:47] LABS: Urine Blood NEGATIVE (NEG); Urine Glucose NEGATIVE (NEG); Urine Protein NEGATIVE (NEG); Urine pH 6.5 (5.0-7.0)
[2020-07-18] MEDS ORDERED: PROMETHAZINE INJ 25 MG/ML AMP ONE (14:50)
--- NOTE | 2020-07-18 15:38 | RAD REPORT ---
EXAM DESCRIPTION: CT - Abdomen Pelvis W Contrast - 07/18/2020 3:26 pm CLINICAL HISTORY: ABD PAIN COMPARISON: Abdomen Pelvis W Contrast dated 08/01/2019 TECHNIQUE: Biphasic, helical CT imaging of the abdomen and pelvis was performed following 100 ml non -ionic IV contrast. No oral contrast administered. All CT scans are performed using dose optimization technique as appropriate and may include automated exposure control or mA/KV adjustment according to patient size. FINDINGS: No suspicious findings in the lung bases. The liver, spleen, and pancreas show no suspicious findings. Gallbladder and biliary tree are also wi thout suspicious finding. Symmetric renal function is seen with no hydronephrosis or suspicious renal mass. No pyelonephritis o r acute parenchymal process. No bladder abnormalities. No adrenal abnormalities. No gastric dilatation or wall thickening. Duodenum is unremarkable. There are multiple loops of jejun um showing circumferential wall thickening and edema. There is stranding and edema in the adjacent me senteric fat. Patient has a small amount of ascites. Diverticulosis is minimal. No free air or pneuma tosis. Appendicitis is not suspected. No hernia, mass or bulky lymphadenopathy. Uterus and ovaries s how no suspicious findings. No suspicious bony findings. IMPRESSION: Prominent ileitis pattern without obstruction, free air or other emergent complication. Small amount of ascites present believed to be related to the prominent ileitis pattern
[2020-07-18] MEDS ORDERED: METHYLPREDNISOLONE 125 MG INJ ONE (15:55)
--- NOTE | 2020-07-18 16:00 | EDPHYS ---
Physician Documentation [facility] Name: Moriah Garcia Age: 39 yrs Sex: Female : 1980 Arrival Date: 07/18/2020 Time: 13:35 Bed 14 Private MD: ED Physician Holland España HPI: 07/18 14:26 This 39 yrs old Female presents to ER via Ambulatory with complaints of kb Abdominal Pain - IBS. 14:26 The patient presents with abdominal pain in the upper abdomen. Onset: The kb symptoms/episode began/occurred this morning. The symptoms do not radiate. Associated signs and symptoms: Pertinent positives: nausea and vomiting, constipation, Pertinent negatives: diarrhea, fever. The symptoms are described as constant, waxing/waning. Modifying factors: The symptoms are alleviated by nothing, the symptoms are aggravated by nothing. Severity of pain: At its worst the pain was moderate in the emergency department the pain is unchanged. The patient has experienced similar episodes in the past, a few times. The patient has not recently seen a physician. Pt reports she was here about a year ago for similar symptoms. STates she was admitted for high wbc and abd pain but they were unable to find anything wrong. Has seen Dr Jensen since then and has had multiple scopes done that haven't found anything either. States she was diagnosed with IBS of unknown origin. Reports she started having a flare this morning and all the things she normally does at home to fix it aren't working. . 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 - Social history:: Smoking status: Patient denies any tobacco usage or history of. ROS: 14:26 Constitutional: Negative for fever, chills, and weight loss, Cardiovascular: Negative kb for chest pain, palpitations, and edema, Respiratory: Negative for shortness of breath, cough, wheezing, and pleuritic chest pain, Back: Negative for injury and pain, MS/Extremity: Negative for injury and deformity, Skin: Negative for injury, rash, and discoloration, Neuro: Negative for headache, weakness, numbness, tingling, and seizure. 14:26 Abdomen/GI: Positive for abdominal pain, nausea and vomiting, constipation, Negative for diarrhea. Exam: 14:26 Constitutional: This is a well developed, well nourished patient who is awake, alert, kb and in no acute distress. Head/Face: Normocephalic, atraumatic. Chest/axilla: Normal chest wall appearance and motion. Nontender with no deformity. No lesions are appreciated. Cardiovascular: Regular rate and rhythm with a normal S1 and S2. No gallops, murmurs, or rubs. Normal PMI, no JVD. No pulse deficits. Respiratory: Lungs have equal breath sounds bilaterally, clear to auscultation and percussion. No rales, rhonchi or wheezes noted. No increased work of breathing, no retractions or nasal flaring. Back: No spinal tenderness. No costovertebral tenderness. Full range of motion. Skin: Warm, dry with normal turgor. Normal color with no rashes, no lesions, and no evidence of cellulitis. MS/ Extremity: Pulses equal, no cyanosis. Neurovascular intact. Full, normal range of motion. Neuro: Awake and alert, GCS 15, oriented to person, place, time, and situation. Cranial nerves II-XII grossly intact. Motor strength 5/5 in all extremities. Sensory grossly intact. Cerebellar exam normal. Normal gait. 14:26 Abdomen/GI: Inspection: obese Bowel sounds: normal, in all quadrants, Palpation: soft, in all quadrants, moderate abdominal tenderness, in the right upper quadrant and left upper quadrant. Vital Signs: 13:42 BP 148 / 96; Pulse 102; Resp 16; Temp 97.3; Pulse Ox 100% on R/A; Weight 127.01 kg; hb Height 5 ft. 5 in. (165.10 cm); Pain 8/10; 14:53 BP 119 / 81; ll1 17:19 BP 123 / 97; Pulse 92; Resp 18; Pulse Ox 98% ; ll1 18:10 BP 119 / 83; Pulse 84; Resp 17; Temp 97.8; Pulse Ox 100% ; Pain 5/10; ll1 13:42 Body Mass Index 46.59 (127.01 kg, 165.10 cm) MDM: 13:50 Patient medically screened. kb 14:26 Data reviewed: vital signs, nurses notes. Data interpreted: Pulse oximetry: on room air kb is 100 %. Interpretation: normal. 15:55 Counseling: I had a detailed discussion with the patient and/or guardian regarding: the kb historical points, exam findings, and any diagnostic results supporting the discharge/admit diagnosis, lab results, radiology results. Physician consultation: Dano Jensen MD was contacted at 15:55, regarding consult, patient's condition, will talk to pt on telemedicine visit at 1000 tomorrow. Reviewed pt's results from today and recommends outpatient treatment with cipro and flagyl. 17:00 Differential diagnosis: appendicitis, bowel obstruction, cholecystitis, Cholelithiasis, andreina gastritis, Mesenteric ischemia or infarction, pancreatitis, Perf. Gastric Ulcer, Peritonitis, Ureterolithiasis, urinary tract infection. ED course: pt continued to worsen, will admit, dr wills to call dr whitman, dr peña to be consulted. 07/18 13:50 Order name: Basic Metabolic Panel; Complete Time: 14:39 kb 07/18 13:50 Order name: CBC with Diff kb 07/18 13:50 Order name: Hepatic Function; Complete Time: 14:39 kb 07/18 13:50 Order name: Lipase; Complete Time: 14:39 kb 07/18 14:21 Order name: Urine Dipstick--Ancillary (enter results); Complete Time: 14:48 eb 07/18 14:21 Order name: Urine --Ancillary (enter results); Complete Time: 14:48 eb 07/18 17:37 Order name: Urinalysis EDMS 07/18 17:37 Order name: CBC with Automated Diff EDMS 07/18 17:37 Order name: CBC with Automated Diff EDMS 07/18 17:37 Order name: Comprehensive Metabolic Panel EDMS 07/18 17:37 Order name: Comprehensive Metabolic Panel EDMS 07/18 17:37 Order name: Magnesium EDMS 07/18 17:37 Order name: Magnesium EDMS 07/18 17:37 Order name: Phosphorus EDMS 07/18 13:50 Order name: IV Saline Lock; Complete Time: 14:04 kb 07/18 14:34 Order name: CT Abd/Pelvis - IV Contrast Only; Complete Time: 15:39 kb 07/18 17:37 Order name: CONS Physician Consult EDAR 07/18 17:37 Order name: Clear Liquid EDAR 07/18 17:37 Order name: Phosphorus EDAR 07/18 13:50 Order name: Labs collected and sent; Complete Time: 14:04 kb Administered Medications: 14:04 Drug: NS 0.9% 1000 ml Route: IV; Rate: 1000 ml; Site: left antecubital; ll1 17:36 Follow up: Response: No adverse reaction; RASS: Alert and Calm (0); IV Status: ll1 Completed infusion; IV Intake: 1000ml 14:04 Drug: Zofran (Ondansetron) 4 mg Route: IVP; Site: left antecubital; ll1 14:46 Follow up: Response: No adverse reaction; Nausea unchanged; RASS: Alert and Calm (0) ll1 14:04 Drug: morphine 4 mg Route: IVP; Site: left antecubital; ll1 14:47 Follow up: Response: No adverse reaction; Pain is decreased; RASS: Alert and Calm (0) ll1 14:46 Drug: Phenergan 12.5 mg Route: IVP; Site: left antecubital; ll1 17:37 Follow up: Response: No adverse reaction; Nausea unchanged ll1 15:58 Drug: SOLU-Medrol 125 mg Route: IVP; Site: left antecubital; ll1 17:37 Follow up: Response: No adverse reaction; RASS: Alert and Calm (0) ll1 16:25 Drug: morphine 4 mg Route: IVP; Site: left antecubital; ll1 17:37 Follow up: Response: No adverse reaction; Pain is decreased; RASS: Alert and Calm (0) ll1 16:26 Drug: Zofran (Ondansetron) 4 mg Route: IVP; Site: left antecubital; ll1 17:38 Follow up: Response: No adverse reaction; RASS: Alert and Calm (0) ll1 16:56 Not Given (Duplicate Order): Cipro 500 mg PO once andreina 16:56 Not Given (Duplicate Order): Flagyl 500 mg PO once andreina 17:19 Drug: Flagyl 500 mg Volume: 100 ml; Route: IVPB; Rate: 200 ml/hr; Infused Over: 30 ll1 mins; Site: left antecubital; 18:24 Follow up: Response: No adverse reaction; RASS: Alert and Calm (0); IV Status: ll1 Completed infusion; IV Intake: 200ml 18:25 Drug: Cipro 400 mg Volume: 200 ml; Route: IVPB; Infused Over: 60 mins; Site: left ll1 antecubital; 18:27 Follow up: Response: No adverse reaction; RASS: Alert and Calm (0); IV Status: Infusion ll1 continued upon admission; IV Intake: 10ml Disposition: 17:00 Co-signature as Attending Physician, Holland España MD I agree with the assessment and andreina plan of care. Disposition: 07/18/20 17:05 Hospitalization ordered by Genaro Wills for Inpatient Admission. Preliminary diagnosis are Abdominal tenderness - prominent ileitis, Elevated white blood cell count, Ascites. - Bed requested for Telemetry/MedSurg (Inpatient). - Status is Inpatient Admission. ll1 - Condition is Fair. - Problem is new. - Symptoms have improved. Signatures: Dispatcher [employer] EDMS Terri Orellana, DIRECTOR OF CLINICAL SERVICES-C LUNA-Holland Donaldson MD MD cha Smirch, [place], RN RN Deyanira Awad RN RN April Maria RN RN ll1 Corrections: (The following items were deleted from the chart) 15:59 15:55 Physician consultation: Dano Jensen MD was contacted at 15:55, regarding kb consult, patient's condition, 16:56 15:59 07/18/2020 15:59 Discharged to Home. Impression: Ileitis. Condition is Stable. andreina Forms are Medication Reconciliation Form, Thank You Letter, Antibiotic Education, Prescription Opioid Use. Follow up: Emergency Department; When: As needed; Reason: Worsening of condition. Follow up: Private Physician; When: 2 - 3 days; Reason: Recheck today's complaints, Continuance of care, Re-evaluation by your physician. kb 17:06 17:05 Hospitalization Ordered by Alphonso Whitman for Inpatient Admission. Preliminary andreina diagnosis is Abdominal tenderness - prominent ileitis; Elevated white blood cell count; Ascites. Bed requested for Telemetry/MedSurg (Inpatient). Status is Inpatient Admission. Condition is Fair. Problem is new. Symptoms have improved. andreina 18:04 17:06 07/18/2020 17:05 Hospitalization Ordered by Genaro Wills MD for Inpatient ss Admission. Preliminary diagnosis is Abdominal tenderness - prominent ileitis; Elevated white blood cell count; Ascites. Bed requested for Telemetry/MedSurg (Inpatient). Status is Inpatient Admission. Condition is Fair. Problem is new. Symptoms have improved. andreina 18:27 18:04 07/18/2020 17:05 Hospitalization Ordered by Genaro Wills MD for Inpatient ll1 Admission. Preliminary diagnosis is Abdominal tenderness - prominent ileitis; Elevated white blood cell count; Ascites. Bed requested for Telemetry/MedSurg (Inpatient). Status is Inpatient Admission. Condition is Fair. Problem is new. Symptoms have improved. ss
--- NOTE | 2020-07-18 16:00 | ER ---
Nurse's Notes [facility] Name: Moriah Garcia Age: 39 yrs Sex: Female : 1980 Arrival Date: 07/18/2020 Time: 13:35 Bed 14 Private MD: Diagnosis: Abdominal tenderness-prominent ileitis;Elevated white blood cell count;Ascites Presentation: 07/18 13:42 Chief complaint: Diffuse abdominal pain upon waking today. Hx of IBS, reports pain is hb similar to typical flare up. Coronavirus screen: At this time, the client does not indicate any symptoms associated with coronavirus-19. Ebola Screen: No symptoms or risks identified at this time. Initial Sepsis Screen: Does the patient meet any 2 criteria? HR > 90 bpm. No. Patient's initial sepsis screen is negative. Does the patient have a suspected source of infection? No. Patient's initial sepsis screen is negative. Risk Assessment: Do you want to hurt yourself or someone else? Patient reports no desire to harm self or others. Onset of symptoms was July 18, 2020. 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 - Social history:: Smoking status: Patient denies any tobacco usage or history of. Screenin:12 Abuse screen: Denies threats or abuse. Nutritional screening: No deficits noted. ll1 Tuberculosis screening: No symptoms or risk factors identified. Fall Risk IV access (20 points). Gait- Weak (10 pts.). Total Rivera Fall Scale indicates Low Risk Score (25-44 pts). Assessment: 14:00 General: Appears in no apparent distress. Behavior is calm, cooperative. Pain: ll1 Complains of pain in left upper quadrant Quality of pain is described as aching, crampy, Is intermittent. Neuro: No deficits noted. Cardiovascular: No deficits noted. Respiratory: No deficits noted. GI: Abdomen is flat, Bowel sounds present X 4 quads. Abd is soft Abdomen is tender to palpation X 4 quads. Reports upper abdominal pain, gaseousness, nausea, vomiting. 15:00 Reassessment: Patient appears in no apparent distress at this time. No changes from ll1 previously documented assessment. Patient and/or family updated on plan of care and expected duration. Pain level reassessed. Patient is alert, oriented x 3, equal unlabored respirations, skin warm/dry/pink. 16:00 Reassessment: Patient appears in no apparent distress at this time. No changes from ll1 previously documented assessment. Patient and/or family updated on plan of care and expected duration. Pain level reassessed. Patient is alert, oriented x 3, equal unlabored respirations, skin warm/dry/pink. 17:00 Reassessment: Patient appears in no apparent distress at this time. No changes from ll1 previously documented assessment. Patient and/or family updated on plan of care and expected duration. Pain level reassessed. Patient is alert, oriented x 3, equal unlabored respirations, skin warm/dry/pink. 18:00 Reassessment: Patient appears in no apparent distress at this time. No changes from ll1 previously documented assessment. Patient and/or family updated on plan of care and expected duration. Pain level reassessed. Patient is alert, oriented x 3, equal unlabored respirations, skin warm/dry/pink. Vital Signs: 13:42 BP 148 / 96; Pulse 102; Resp 16; Temp 97.3; Pulse Ox 100% on R/A; Weight 127.01 kg; hb Height 5 ft. 5 in. (165.10 cm); Pain 8/10; 14:53 BP 119 / 81; ll1 17:19 BP 123 / 97; Pulse 92; Resp 18; Pulse Ox 98% ; ll1 18:10 BP 119 / 83; Pulse 84; Resp 17; Temp 97.8; Pulse Ox 100% ; Pain 5/10; ll1 13:42 Body Mass Index 46.59 (127.01 kg, 165.10 cm) hb ED Course: 13:35 Patient arrived in ED. ds1 13:43 Triage completed. hb 13:44 Arm band placed on. hb 13:50 [facility]. kb 13:50 Holland España MD is Attending Physician. kb 13:51 April Maria RN is Primary Nurse. ll1 14:10 Initial lab(s) drawn, by wi, sent to lab. Inserted saline lock: 22 gauge in left kj1 antecubital area, using aseptic technique. Blood collected. 15:25 CT Abd/Pelvis - IV Contrast Only In Process Unspecified. EDMS 17:03 Alphonso Whitman is Hospitalizing Provider. andreina 17:06 Genaro Morrison MD is Hospitalizing Provider. andreina 18:11 Patient has correct armband on for positive identification. Bed in low position. Call [facility] light in reach. Side rails up X 1. 18:26 No provider procedures requiring assistance completed. Patient admitted, IV remains in [address] Administered Medications: 14:04 Drug: NS 0.9% 1000 ml Route: IV; Rate: 1000 ml; Site: left antecubital; 1 17:36 Follow up: Response: No adverse reaction; RASS: Alert and Calm (0); IV Status: ll1 Completed infusion; IV Intake: 1000ml 14:04 Drug: Zofran (Ondansetron) 4 mg Route: IVP; Site: left antecubital; 1 14:46 Follow up: Response: No adverse reaction; Nausea unchanged; RASS: Alert and Calm (0) ll1 14:04 Drug: morphine 4 mg Route: IVP; Site: left antecubital; ll1 14:47 Follow up: Response: No adverse reaction; Pain is decreased; RASS: Alert and Calm (0) ll1 14:46 Drug: Phenergan 12.5 mg Route: IVP; Site: left antecubital; 1 17:37 Follow up: Response: No adverse reaction; Nausea unchanged 1 15:58 Drug: SOLU-Medrol 125 mg Route: IVP; Site: left antecubital; ll1 17:37 Follow up: Response: No adverse reaction; RASS: Alert and Calm (0) ll1 16:25 Drug: morphine 4 mg Route: IVP; Site: left antecubital; ll1 17:37 Follow up: Response: No adverse reaction; Pain is decreased; RASS: Alert and Calm (0) ll1 16:26 Drug: Zofran (Ondansetron) 4 mg Route: IVP; Site: left antecubital; 1 17:38 Follow up: Response: No adverse reaction; RASS: Alert and Calm (0) ll1 16:56 Not Given (Duplicate Order): Cipro 500 mg PO once andreina 16:56 Not Given (Duplicate Order): Flagyl 500 mg PO once andreina 17:19 Drug: Flagyl 500 mg Volume: 100 ml; Route: IVPB; Rate: 200 ml/hr; Infused Over: 30 ll1 mins; Site: left antecubital; 18:24 Follow up: Response: No adverse reaction; RASS: Alert and Calm (0); IV Status: ll1 Completed infusion; IV Intake: 200ml 18:25 Drug: Cipro 400 mg Volume: 200 ml; Route: IVPB; Infused Over: 60 mins; Site: left ll1 antecubital; 18:27 Follow up: Response: No adverse reaction; RASS: Alert and Calm (0); IV Status: Infusion ll1 continued upon admission; IV Intake: 10ml Intake: 17:36 IV: 1000ml; Total: 1000ml. ll1 18:24 IV: 200ml; Total: 1200ml. ll1 18:27 IV: 10ml; Total: 1210ml. ll1 Outcome: 15:59 Discharge ordered by . kb 17:05 Decision to Hospitalize by Provider. andreina 18:25 Admitted to Med/surg accompanied by tech, via wheelchair, room 218, with chart, Report ll1 called to LEIGH Engle on 18:25 Condition: stable 18:27 Patient left the ED. 1 Signatures: Dispatcher [employer] EDTerri Guy, [employer]-C [employer]-CkHolland Perkins MD MD cha Sanford, Demi ds1 Deyanira Awad RN RN hb Jackson, Kandis kj1 April Maria RN RN 1
[2020-07-18] MEDS ORDERED: metroNIDAZOLE 500 MG TABLET ONE (16:22)
[2020-07-18] MEDS ORDERED: CIPROFLOXACIN HCL 500 MG TAB ONE (16:22)
[2020-07-18] MEDS ORDERED: CIPROFLOXACIN 400mg IV 400 MG/200 ML BAG IV ONE (17:16)
[2020-07-18] MEDS ORDERED: METRONIDAZOLE 500mg IVPB 500 MG/100 ML BAG IV ONE (17:16)
[2020-07-18] MEDS ORDERED: ACETAMINOPHEN 500 MG TAB PO PRN (17:34)
[2020-07-18] MEDS ORDERED: ALBUTEROL INHALER 60 PUFF/8 GM IH PRN (17:36)
--- NOTE | 2020-07-18 17:47 | P.HP ---
Patient History Date of Service: 07/18/20 Reason for admission: Intractable abdominal pain History of Present Illness: 39-year-old female past medical history of hypothyroidism, IBS for admitted with. abdominal discomfort which has been going on for the last 3 days and has been progressively worsening and was brought to ER. Pain was associated with nausea and vomiting denies any diarrhea No fever or chills No sick contacts She is followed by Dr Jensen as outpatient Patient was assessed in the ER and had a CT scan which was suggestive of ileitis and was admitted for further management. Allergies coconut Allergy (Verified 08/01/19 23:35) Hives ibuprofen Allergy (Verified 08/01/19 23:35) Hives peanut Allergy (Verified 08/01/19 23:35) Hives NSAIDS Allergy (Mild, Uncoded 08/01/19 23:36) Hives Home medications list reviewed: Yes Home Medications: Albuterol Inhaler [Ventolin Inhaler*] 1 puff IH PRN PRN 08/01/19 Ergocalciferol (Vitamin D2) [Vitamin D 50,000 Unit Cap] 50,000 unit PO SEECOM 08/01/19 Ethinyl Estradiol/Drospirenone [Loren 28 Tablet] 1 pill PO BEDTIME 08/01/19 Montelukast [Singulair*] 10 mg PO BEDTIME 08/01/19 Spironolactone [Aldactone*] 100 mg PO BEDTIME 08/01/19 Synthroid 175 mcg PO BEDTIME 08/01/19 lisinopriL [Prinivil*] 10 mg PO BEDTIME 08/01/19 Cefuroxime Axetil [Cefuroxime] 500 mg PO BID #16 tab 08/03/19 Ondansetron [Zofran] 4 mg PO Q6H PRN #20 tab 08/03/19 metroNIDAZOLE [Flagyl] 500 mg PO Q8H #24 tablet 08/03/19 - Past Medical/Surgical History Diabetic: No Past Medical History: Reviewed- Non-Contributory -: Thalassemia -: Asthma -: Seasonal allergies -: Hashimotos -: PCOS Past Surgical History: Reviewed- Non-Contributory - Family History Family History: Reviewed- Non-Contributory - Social History Smoking Status: Never smoker Alcohol use: Yes CD- Drugs: No Caffeine use: Yes Review of Systems 10-point ROS is otherwise unremarkable Physical Examination - Vital Signs Temperature: 98.2 F Blood Pressure: 146/83 Pulse: 78 Respirations: 18 - Physical Exam General: Alert, In no apparent distress HEENT: Atraumatic, Normocephalic Neck: Supple, 2+ carotid pulse no bruit Respiratory: Clear to auscultation bilaterally Cardiovascular: Normal pulses, Regular rate/rhythm Capillary refill: <2 Seconds Gastrointestinal: Non-distended, W/out hepatosplenomegaly, Tenderness Musculoskeletal: No clubbing, No swelling Integumentary: No rashes, No breakdown Neurological: Normal speech, Normal strength at 5/5 x4 extr Lymphatics: No axilla or inguinal lymphadenopathy - Studies Laboratory Data (last 24 hrs) 07/18/20 14:10: WBC 16.4 H, Hgb 13.8, Hct 44.1, Plt Count 380 07/18/20 14:10: Sodium 138, Potassium 4.4, BUN 10, Creatinine 0.96, Glucose 118 H, Total Bilirubin 0.6, AST 15, ALT 24, Alkaline Phosphatase 87, Lipase 81 Assessment and Plan - Problems (Diagnosis) (1) Ileitis Current Visit: No Status: Acute - Plan Ileitis History of IBS hypothyroidism Intractable abdominal pain Unable to tolerate p.o. Plan Monitor closely for start on clear liquid diet and advanced as tolerated start on PPI start on antibiotics GI consult Pain control Continue home medications and titrate as needed GI/DVT prophylaxis - Advance Directives Does patient have a Living Will: No Does patient have a Durable POA for Healthcare: No Time Spent Managing Pts Care (In Minutes): 48
[2020-07-18] MEDS ORDERED: SODIUM CHLORIDE 0.9% 10ML INJ IV PRN (17:50)
[2020-07-18 18:28] LABS: Platelet Estimate ADEQ; Urine White Blood Cell Casts OK
[2020-07-18 18:29] LABS: Blood Morphology Comment NOTED (NOT SEEN); Hypochromasia 1+
[2020-07-18] MEDS ORDERED: PIPER/TAZO/NS 3.375gm 3.375 GM/100 ML BAG IVPB SCH (18:30)
[2020-07-18 18:40] VITALS: BMI 45.2
[2020-07-18] MEDS: ENOXAPARIN 40 MG/0.4 ML SQ SCH (18:40)
[2020-07-18] MEDS: NA CHLORIDE 0.9% 1,000 ML IV SCH (18:41)
[2020-07-18 18:42] VITALS: O2SAT 100
[2020-07-18] MEDS ORDERED: lisinopriL 10 MG TAB PO SCH (21:00)
[2020-07-18] MEDS ORDERED: MONTELUKAST 10 MG TAB PO SCH (21:00)
[2020-07-18] MEDS ORDERED: SYNTHROID 175 MCG PO SCH (21:00)
[2020-07-18] MEDS ORDERED: SPIRONOLACTONE 100 MG TAB PO SCH (21:00)
[2020-07-18] MEDS: ONDANSETRON 4 MG/2 ML VIAL IV PRN (21:15)
[2020-07-18] MEDS: PANTOPRAZOLE 40 MG INJ IVP SCH (21:15)
[2020-07-18] MEDS: MORPHINE 2 MG/ML SYR IV PRN (21:15)
[2020-07-19] MEDS: METRONIDAZOLE 500mg IVPB 500 MG/100 ML BAG IV SCH ×2 (00:21→08:59)
[2020-07-19] MEDS ORDERED: DIAZEPAM 2 MG TABLET PO ONE (00:50)
[2020-07-19] MEDS ORDERED: PIPER/TAZO/NS 3.375gm 3.375 GM/100 ML BAG IVPB SCH ×2 (01:00→09:00)
[2020-07-19] MEDS: NA CHLORIDE 0.9% 1,000 ML IV SCH ×2 (04:00→08:58)
[2020-07-19 05:40] LABS: Absolute Lymphocytes (CBC) 1.1 K/uL (0.7-4.9); Basophils % 0.7 % (0-1.3); Hematocrit 35.6 % (36.0-45.0); Lymphocytes % 10.5 % (15.3-44.8); MPV 10.6 fL (7.6-11.3); RBC Red Blood Cell Count 5.71 M/uL (3.86-4.86)
[2020-07-19 05:50] LABS: Albumin 2.6 g/dL (3.4-5.0); Bilirubin Total 0.4 mg/dL (0.2-1.0); Phosphorus 2.2 mg/dL (2.5-4.9); Potassium 4.5 mmol/L (3.5-5.1); Protein, Total 6.5 g/dL (6.4-8.2)
[2020-07-19] MEDS ORDERED: LEVOTHYROXINE SOD 0.1 MG TAB PO SCH (06:30)
[2020-07-19] MEDS ORDERED: LEVOTHYROXINE SOD 0.075 MG TAB PO SCH (06:30)
[2020-07-19] MEDS: ONDANSETRON 4 MG/2 ML VIAL IV PRN (07:55)
[2020-07-19] MEDS: MORPHINE 2 MG/ML SYR IV PRN (07:56)
[2020-07-19] MEDS: ENOXAPARIN 40 MG/0.4 ML SQ SCH (08:59)
[2020-07-19] MEDS: PANTOPRAZOLE 40 MG INJ IVP SCH (08:59)
[2020-07-19] MEDS ORDERED: LIDOCAINE 4% PATCH TOP SCH (09:00)
--- NOTE | 2020-07-19 12:13 | P.DS ---
Admission Date: 07/18/20 Discharge Date: 07/19/20 Disposition: ROUTINE DISCHARGE Discharge Condition: GOOD Reason for Admission: Intractable abdominal pain - Problems (1) Ileitis Status: Acute Brief History of Present Illness: 39-year-old female past medical history of hypothyroidism, IBS for admitted with. abdominal discomfort which has been going on for the last 3 days and has been progressively worsening and was brought to ER. Pain was associated with nausea and vomiting denies any diarrhea No fever or chills No sick contacts She is followed by Dr Jensen as outpatient Patient was assessed in the ER and had a CT scan which was suggestive of ileitis and was admitted for further management. Hospital Course: Ileitis History of IBS Hypothyroidism Intractable abdominal pain Unable to tolerate p.o. Patient was admitted and started on pain medications and IV antibiotics for Ileitis . Initially was kept on NPO and was started on clear liquid diet. She was also start on PPI along with her home medications. Patient responded well to the treatment and wanted to go home and is being discharged home today in a stable condition with advice to follow up with PCP in 1 week and also with GI in 1-2 weeks Vital Signs/Physical Exam: Temp Pulse Resp BP Pulse Ox 97.9 F 80 19 122/60 95 07/19/20 08:00 07/19/20 08:00 07/19/20 08:26 07/19/20 08:00 07/19/20 08:26 General: Alert, In no apparent distress HEENT: Atraumatic, Normocephalic Neck: Supple Respiratory: Clear to auscultation bilaterally Cardiovascular: Regular rate/rhythm, Normal S1 S2 Capillary refill: <2 Seconds Gastrointestinal: Soft and benign, W/out hepatosplenomegaly Musculoskeletal: No clubbing, No swelling Integumentary: No rashes, No breakdown Neurological: Normal speech, Normal strength at 5/5 x4 extr Lymphatics: No axilla or inguinal lymphadenopathy Laboratory Data at Discharge: WBC 10.1 K/uL (4.3-10.9) D 07/19/20 05:05 Hgb 11.2 g/dL (12.0-15.0) L D 07/19/20 05:05 Hct 35.6 % (36.0-45.0) L D 07/19/20 05:05 Plt Count 300 K/uL (152-406) D 07/19/20 05:05 Sodium 137 mmol/L (136-145) 07/19/20 05:05 Potassium 4.5 mmol/L (3.5-5.1) 07/19/20 05:05 BUN 9 mg/dL (7-18) 07/19/20 05:05 Creatinine 0.75 mg/dL (0.55-1.3) 07/19/20 05:05 Glucose 143 mg/dL (74-106) H 07/19/20 05:05 Phosphorus 2.2 mg/dL (2.5-4.9) L 07/19/20 05:05 Magnesium 2.0 mg/dL (1.8-2.4) 07/19/20 05:05 Total Bilirubin 0.4 mg/dL (0.2-1.0) 07/19/20 05:05 AST 16 U/L (15-37) 07/19/20 05:05 ALT 26 U/L (12-78) 07/19/20 05:05 Alkaline Phosphatase 66 U/L (45-117) 07/19/20 05:05 Lipase 81 U/L (73-393) 07/18/20 14:10 Home Medications: Albuterol Inhaler [Ventolin Inhaler*] 1 puff IH PRN PRN 08/01/19 Ethinyl Estradiol/Drospirenone [Loren 28 Tablet] 1 pill PO BEDTIME 08/01/19 Montelukast [Singulair*] 10 mg PO BEDTIME 08/01/19 Spironolactone [Aldactone*] 100 mg PO BEDTIME 08/01/19 Synthroid 175 mcg PO DAILY 08/01/19 lisinopriL [Prinivil*] 10 mg PO BEDTIME 08/01/19 Ondansetron [Zofran (Odt)*] 4 mg PO Q6H PRN #20 tab 08/03/19 Fluticasone/Salmeterol [Advair 250-50 Diskus] 07/18/20 Amox/Clavulanate [Augmentin 875-125 Tab] 1 each PO BID #14 tab 07/19/20 New Medications: Amox/Clavulanate [Augmentin 875-125 Tab] 1 each PO BID #14 tab Time spent managing pt's care (in minutes): 43
[2020-07-19 15:24] VITALS: BP 120/54; TEMP 97.4
== END 2020-07-19 12:45 | disposition home or self-care (01) ==
LOC: ER 13:31 → ERHOLD 17:42 → 2ND 18:17
PROVIDERS: ADMIT Family Medicine; ATTEND Family Medicine
DX: K52.9 Noninfective gastroenteritis and colitis, unspecified (principal); R18.8 Other ascites; Z20.828 Contact with and (suspected) exposure to other viral communicable diseases; E03.9 Hypothyroidism, unspecified
CPT/HCPCS: 96365; 96361; 85025 ×2; 80048; 36415; 83735; 81025; 84100; 80076; 81003; 83690; 80053; 74177; 96375; 99285; U0002; Q9967; J2550; C9113 ×2; J1650 ×2; J2543; J2270 ×2; J7030 ×3; J2930; J2405 ×4; J0744; G0378 ×3

== ENCOUNTER 2024-08-12 15:10 | Inpatient (IN) | payer BC ==
--- OUTSIDE RECORDS SUMMARY | 2024-08-12 15:15 | XMS REPORT | Continuity of Care Document ---
Author Name Unknown Address [address] [facility] [address] [place] [address] [facility] Address [address] [facility] [address] [place] [address] Care Team Providers Care Fur Machine Operator Name Role Phone [id number] Primary Care Physician Unavailab LAVONNE Pettit Attending Clinician Yumiko TAMAR Calixto Attending Clinician Unavail able Tamar Cortez MD Attending Clinician Lab, Ang - Db Attending Clinician Unavailable Lavonne Barillas MD Attending Clinician Doctor Unassigned, [place] Attending Clinician U LIZABETH Hernandez Attending Clinician Unavailable Radiology Attending Clinician Unavailable RADIOLOGY Attending Clinician Unavailable VALERIA HEARD Attending Clinician Unavailable ANN MARIE LOPEZ Attending Clinician Unavailable YENNI SU Attending Clinician Unava iljazmien PROVIDER, VANCEISVALERIE Attending Clinician Unavailable [id number] Attending Clinician Unavailable [id number] Attending Clinician Unavailable Valeria Heard MD Attending Clinician [phone] Yenni Su MD Attending Clinician + [phone] Dano Jensen MD Attending Clinician [phone] Team, [facility] Attending Connie Fontanez RNSurinder Attending Clinician UnavailLAVONNE Sotelo Admitting Clinician VALERIA Salas Admitting Clinician Unavailable Payers Payer Name Policy Type Policy Number Effective Date Expirati on Date Source [employer] [employer] [facility] [employer] [facility] [employer] [id number] 2017 00:00:00 BCBS 2 [id number] 2021 00:00:00 Problems Condition Name Condition Details Condition Category Status Onset Date Resolution Date Last Treatment Date Treating Clinician Comments Source Hyperlipid emia Hyperlipid emia Disease Active 08-26 00:00: 00 [facility] Other specified hypothyroi dism Other specified hypothyroi dism Disease Active 03-31 00:00: 00 Rissa Brionesold - Externa l Essential hypertensi on Essential hypertensi on Disease Active 03-31 00:00: 00 [facility] Gastroesop hageal reflux disease Gastroesop hageal reflux disease Disease Active 03-31 00:00: 00 [facility] PCOS (polycysti c ovarian syndrome) PCOS (polycysti c ovarian syndrome) Disease Active 03-31 00:00: 00 [facility] Mild asthma Mild asthma Disease Active 02-25 00:00: 00 Rissa Rodarte - Externa l Thalassemi a minor Thalassemi a minor Disease Active 02-25 00:00: 00 iRssa Rodarte - Externa l Jemal' s thyroiditi s Jemal' s thyroiditi s Disease Active 02-25 00:00: 00 Rissa Brionesold - Externa l Allergies, Adverse Reactions, Alerts Allergy Name Allergy Type Status Severity Reaction(s) Onset Date Inactive Date Treating Clinician Comments Source Aspirin Propensi ty to adverse reaction s Active Hives 01-09 00:00: 00 Rissa Seybold - Externa l Aspirin Propensi ty to adverse reaction s Active Hives 12-08 00:00: 00 [facility] Ibuprofe n Propensi ty to adverse reaction s Active Hives 12-08 00:00: 00 [facility] ASPIRIN DRUG INGREDI Active Hives 2017-0 - 00:00: 00 [facility] IBUPROFE N DRUG INGREDI Active Hives 0 1- 00:00: 00 [facility] NAPROXEN DRUG INGREDI Active Hives 0 - 00:00: 00 [facility] Naproxen Sodium Propensi ty to adverse reaction s Active Hives - 00:00: 00 Rissa Rodarte - Nelsona l COCONUT OIL DRUG INGREDI Active High Hives 2013-11 0-14 00:00: 00 [facility] PEANUT DRUG INGREDI Active High Hives 2013-11 014 00:00: 00 [facility] Coconut Oil Propensi ty to adverse reaction s Active Hives 2013-11 014 00:00: 00 [facility] Peanut Propensi ty to adverse reaction s Active Hives 2013-11 0 00:00: 00 [facility] Peanut-D erived Propensi ty to adverse reaction s Active Hives 2013-11 014 00:00: 00 Rissa Rodarte - Nelsona l Coconut Oil Propensi ty to adverse reaction s Active Hives 2013-11 014 00:00: 00 Rissa Rodarte - Externa l Coconut Oil Propensi ty to adverse reaction s Active Hives 2013-11 0-14 00:00: 00 Rissa Rodarte ALUMINUM ASPIRIN DRUG INGREDI Active High Hives 2010-11 00:00: 00 [facility] NSAIDS (NON-SHAAN ROIDAL ANTI-INF LAMMATOR Y DRUG) Drug Class Active High Hives 2010-11 00:00: 00 [facility] Aluminum Aspirin Propensi ty to adverse reaction s Active Hives 2010-11 00:00: 00 [facility] Nsaids (Non-Shaan roidal Anti-Inf lammator y Drug) Propensi ty to adverse reaction s Active Hives 2010-11 00:00: 00 [facility] Ibuprofe n Propensi ty to adverse reaction s Active Hives 2010-11 00:00: 00 Rissa barr Nsaids Propensi ty to adverse reaction s Active Hives 2010-11 00:00: 00 Rissa Rodarte Nsaids Propensi ty to adverse reaction s Active Hives 2010-11 00:00: 00 Rissa Damona l Social History Social Habit Start Date Stop Date Quantity Comments [facility]coh[facility] intake 2024-04-11 00:00:00 2024-04-11 00:00:00 Current drinker of alcohol (finding) [facility] Tobacco use and exposure 2024-04-11 00:00:00 2024-04-11 00:00:00 Smokeless tobacco non-user [facility] History of Social function 2023-10-12 00:00:00 2023-10-12 00:00:00 [facility] Alcohol Comment 2023-10-12 00:00:00 2023-10-12 00:00:00 1-3 drinks weekly [facility] Alcohol intake 2022-09-30 00:00:00 2022-09-30 00:00:00 Current drinker of alcohol (finding) Rissa Isaacs Sex Assigned At 1980 00:00:00 1980 00:00:00 Rissa Rodarte - External Smoking Status Start Date Stop Date Source Never smoked tobacco [facility] Medications Ordered Medication Name Filled Medication Name Start Date Stop Date Current Medication? Ordering Clinician Indication Dosage Frequency Signature (SIG) Comments Components Source spironolact one 50 mg tablet 04-11 00:00: 00 Yes [id number] 50mg Take 1 tablet by mouth in the morning. [facility] levothyroxi ne 137 mcg tablet 04-11 00:00: 00 Yes [id number] 137ug Take 1 tablet by mouth every morning. [facility] EPINEPHrine 0.3 mg/0.3 mL injection 03-23 00:00: 00 Yes INJECT 0.3ML INTO THE MUSCLE DIRECTED. [facility] spironolact one 100 mg tablet 2022-11 00:00: 00 04-11 00:00 :00 No [id number] 50mg Take 0.5 tablets by mouth in the morning. [facility] lisinopril 10 mg tablet 2022-11 08:28: 10 10-12 00:00 :00 No 10mg Take 10 mg by mouth daily. [facility] fluticasone -salmeterol 250-50 mcg/dose inhalation disk 2022-11 08:11: 27 Yes 1{puff} Inhale 1 Puff every 12 (twelve) hours as needed. [facility] MULTIVITAMI N ORAL 2022-11 08:11: 27 Yes 1{each} Take 1 Each by mouth in the morning. [facility] albuterol 90 mcg/actuati on inhaler 2022-11 08:11: 27 Yes 2{puff} Inhale 2 Puffs every 4 (four) hours as needed for Shortness of Breath. [facility] montelukast (SINGULAIR) 10 mg tablet 2022-11 08:11: 27 Yes 10mg Take 1 tablet by mouth in the morning. [facility] CHOLECALCIF JAKY, VITAMIN D3, ORAL 2022-11 08:08: 54 Yes 1{tbl} Take 1 tablet by mouth in the morning. [facility] cetirizine 10 mg tablet 2022-11 08:08: 54 Yes 10mg Take 1 tablet by mouth in the morning. [facility] montelukast 10 mg tablet 2022-11 08:08: 35 10-12 00:00 :00 No 10mg Take 10 mg by mouth. [facility] levothyroxi ne (SYNTHROID) 175 mcg tablet 2022-11 08:08: 35 10-12 00:00 :00 No 175ug Take 175 mcg by mouth every morning. [facility] spironolact one 25 mg tablet 2022-11 08:08: 35 10-12 00:00 :00 No Take by mouth. [facility] drospirenon e-ethinyl estradioL 3-0.03 mg per tablet 2022-11 00:00: 00 Yes [id number] 1{tbl} Take 1 tablet by mouth every morning. [facility] lisinopriL 10 mg tablet 2022-11 00:00: 00 Yes [id number] 10mg Take 1 tablet by mouth in the morning. [facility] triamcinolo ne acetonide 0.1 % ointment 2022-11 00:00: 00 Yes [id number] Apply to area(s) at bedtime as needed for Rash. [facility] levothyroxi ne 137 mcg tablet 2022-11 00:00: 00 04-11 00:00 :00 No [id number] 137ug Take 1 tablet by mouth every morning. [facility] spironolact one 100 mg tablet 2022-11 00:00: 00 10-14 00:00 :00 No [id number] 100mg Take 1 tablet by mouth in the morning. [facility] levothyroxi ne 137 mcg tablet 15 00:00: 00 10-12 00:00 :00 No 137ug Take 1 tablet by mouth in the morning. [facility] Cetirizine HCl (ZyrTEC Allergy) 10 MG oral Capsule 2021-11 10:44: 43 11-23 00:00 :00 No [id number] Take by mouth Rissa barr Amoxicillin -Pot Clavulanate (Augmentin) 875-125 MG oral Tablet 2021-11 00:00: 00 Yes [id number] 1{tbl} Take 1 tablet by mouth 2 times daily Rissa barr Cetirizine- Pseudoephed rine (ZyrTEC-D Allergy & Congestion) 5-120 MG oral Tablet 12 Hour Sustained Release 2021-11 00:00: 00 Yes [id number] 1{tbl} Take 1 tablet by mouth 2 times daily Rissa barr Albuterol HFA 108 (90 Base) MCG/ACT IN AERS 2021-11 08:06: 50 Yes [id number] Inhale into the lungs Rissa barr Cetirizine HCl (ZyrTEC Allergy) 10 MG oral Capsule 2021-11 08:06: 50 Yes [id number] Take by mouth Rissa Gan Externa momo Montelukast (SINGULAIR) 10 MG oral Tablet tablet 2021-11 08:06: 50 Yes [id number] 10mg Take 10 mg by mouth Rissa Gan Externa momo Probiotic Product (PROBIOTIC- 10 OR) 2021-11 08:06: 50 Yes [id number] Take by mouth Rissa Gan Externa momo Ondansetron HCl 4 MG oral Tablet 2021-11 00:00: 00 Yes [id number] 4mg [id number] 3D Take 1 tablet (4 mg total) by mouth every 8 hours as needed for nausea Rissa barr Diphenoxyla te-Atropine 2.5-0.025 MG oral Tablet 2021-11 00:00: 00 Yes [id number] 2{tbl} Q.25D Take 2 tablets by mouth 4 times daily as needed for diarrhea Rissa barr Levothyroxi ne Sodium 137 MCG oral Tablet 08-28 00:00: 00 Yes [id number] 137ug Take 1 tablet (137 mcg total) by mouth daily Rissa barr Albuterol HFA 108 (90 Base) MCG/ACT IN AERS 08-25 08:28: 43 Yes [id number] Inhale into the lungs Rissa barr Cetirizine HCl (ZyrTEC Allergy) 10 MG oral Capsule 08-25 08:28: 43 Yes [id number] Take by mouth Rissa barr Montelukast (SINGULAIR) 10 MG oral Tablet tablet 08-25 08:28: 43 Yes [id number] 10mg Take 10 mg by mouth Rissa Gan Externa momo Probiotic Product (PROBIOTIC- 10 OR) 08-25 08:28: 43 Yes [id number] Take by mouth Rissa barr Drospirenon e-Ethinyl Estradiol (Loren 28) 3-0.03 MG oral Tablet 08-25 00:00: 00 Yes [id number] 1{tbl} Take 1 tablet by mouth daily Rissa barr Lisinopril 10 MG oral Tablet 08-25 00:00: 00 Yes [id number] 10mg Take 1 tablet (10 mg total) by mouth daily Rissa barr Levothyroxi ne Sodium (Synthroid) 175 MCG oral Tablet 08-25 00:00: 00 Yes [id number] 175ug Take 1 tablet (175 mcg total) by mouth daily Rissa barr drospirenon e-ethinyl estradioL 3-0.03 mg per tablet 08-25 00:00: 00 10-12 00:00 :00 No 1{tbl} Take 1 tablet by mouth every morning. [facility] esomeprazol e 40 mg capsule 08-25 00:00: 00 10-12 00:00 :00 No 40mg Take 1 capsule by mouth daily with breakfast. [facility] spironolact one 100 mg tablet 08-25 00:00: 00 10-12 00:00 :00 No 100mg Take 1 tablet by mouth in the morning. [facility] Albuterol HFA 108 (90 Base) MCG/ACT IN AERS 08-01 08:27: 20 Yes [id number] Inhale into the lungs Rissa Rodarte Cetirizine HCl (ZyrTEC Allergy) 10 MG oral Capsule 08-01 08:27: 20 Yes [id number] Take by mouth Rissa Rodarte Cyanocobala min (Vitamin B 12) 100 MCG oral Lozenge 08-01 08:27: 20 Yes [id number] Take by mouth Rissa Rodarte Montelukast (SINGULAIR) 10 MG oral Tablet tablet 08-01 08:27: 20 Yes [id number] 10mg Take 10 mg by mouth Rissa Rodarte Probiotic Product (PROBIOTIC- 10 OR) 08-01 08:27: 20 Yes [id number] Take by mouth Rissa Rodarte Drospirenon e-Ethinyl Estradiol (Loren 28) 3-0.03 MG oral Tablet 08-01 00:00: 00 Yes [id number] 1{tbl} Take 1 tablet by mouth daily Rissa Rodarte Esomeprazol e Magnesium (NexIUM) 40 MG oral Delayed Release Capsule 08-01 00:00: 00 Yes [id number] 40mg Take 1 capsule (40 mg total) by mouth every morning (before breakfast) Rissa Rodarte Levothyroxi ne Sodium (Synthroid) 175 MCG oral Tablet 08-01 00:00: 00 Yes [id number] 175ug Take 1 tablet (175 mcg total) by mouth daily Rissa Rodarte Lisinopril 10 MG oral Tablet 08-01 00:00: 00 Yes [id number] 10mg Take 1 tablet (10 mg total) by mouth daily Rissa Rodarte Spironolact one 100 MG oral Tablet 08-01 00:00: 00 Yes [id number] Take 2 tabs by mouth daily Rissa Rodarte Advair Diskus 250-50 MCG/DOSE inhalation AEROSOL POWDER, BREATH ACTIVATED 01-02 00:00: 00 Yes [id number] Rissa Rodarte - Externa l montelukast 10 mg tablet 06-11 20:12: 49 Yes 10mg Take 10 mg by mouth. [facility] levothyroxi ne (SYNTHROID) 175 mcg tablet 06-11 20:12: 49 Yes 175ug Take 175 mcg by mouth every morning. [facility] thyroid 60 mg tablet 06-11 20:12: 49 Yes 90mg Take 90 mg by mouth. [facility] spironolact one 25 mg tablet 06-11 20:12: 49 Yes Take by mouth. [facility] fluticasone -salmeterol 250-50 mcg/dose inhalation disk 06-11 20:12: 49 Yes 1{puff} Inhale 1 Puff. [facility] ALBUTEROL INHALE 06-11 20:12: 49 Yes Inhale. [facility] lisinopril 10 mg tablet 06-11 20:12: 49 Yes 10mg Take 10 mg by mouth daily. [facility] montelukast (SINGULAIR) 10 mg tablet 06-11 15:12: 49 Yes 10mg Take 1 tablet by mouth in the morning. [facility] levothyroxi ne (SYNTHROID) 175 mcg tablet 06-11 15:12: 49 Yes 175ug Take 175 mcg by mouth every morning. [facility] thyroid 60 mg tablet 06-11 15:12: 49 Yes 90mg Take 90 mg by mouth. [facility] spironolact one 25 mg tablet 06-11 15:12: 49 Yes Take by mouth. [facility] fluticasone -salmeterol 250-50 mcg/dose inhalation disk 06-11 15:12: 49 Yes 1{puff} Inhale 1 Puff every 12 (twelve) hours as needed. [facility] ALBUTEROL INHALE 06-11 15:12: 49 Yes Inhale. [facility] lisinopril 10 mg tablet 06-11 15:12: 49 Yes 10mg Take 10 mg by mouth daily. [facility] polyethylen e glycol (MIRALAX) 17 gram/dose powder 06-11 00:00: 00 Yes [id number] 17g Take 17 g by mouth 2 (two) times daily. [facility] acetaminoph en-codeine 300-30 mg tablet 330 00:00: 00 Yes [id number] 1/2 - 1 tab Every 4hrs as needed for pain or cough requiring narcotic [facility] drospirenon e-ethinyl estradiol 3-0.03 mg per tablet 05-02 00:00: 00 Yes Take by mouth. [facility] Immunizations Ordered Immunization Name Filled Immunization Name Date Status Comments Source Influenza Virus Vaccine, Unspecified Formulation 2022-08-19 00:00:00 Completed Rissa Seybold - External Influenza Virus Vaccine, Unspecified Formulation 2022-08-19 00:00:00 Completed Rissa Seybold - External Influenza Virus Vaccine, Unspecified Formulation 2022-08-19 00:00:00 Completed Rissa Seybold - External Influenza Virus Vaccine, age 6 months and up 2021-08-01 00:00:00 Completed Rissa Seybold - External Influenza Virus Vaccine, age 6 months and up 2021-08-01 00:00:00 Completed Rissa Seybold - External Influenza Virus Vaccine, age 6 months and up 2021-08-01 00:00:00 Completed Rissa Seybold Influenza Virus Vaccine, age 6 months and up 2021-08-01 00:00:00 Completed Rissa Seybold - External Covid-19 Vaccine (Pfizer), Mrna-lnp, Bryon Protein, Pf, 30mcg/0.3ml,IM 2020-12-11 00:00:00 Completed Rissa Seybold - External Covid-19 Vaccine (Pfizer), Mrna-lnp, Bryon Protein, Pf, 30mcg/0.3ml,IM 2020-12-11 00:00:00 Completed Rissa Seybold - External Covid-19 Vaccine (Pfizer), Mrna-lnp, Bryon Protein, Pf, 30mcg/0.3ml,IM 2020-12-11 00:00:00 Completed Rissa Seybold - External Covid-19 Vaccine (Pfizer), Mrna-lnp, Bryon Protein, Pf, 30mcg/0.3ml,IM 2020-12-11 00:00:00 Completed Rissa Seybold - External Covid-19 Vaccine (Pfizer), Mrna-lnp, Bryon Protein, Pf, 30mcg/0.3ml,IM 2020-12-11 00:00:00 Completed Rissa Seybold Covid-19 Vaccine (Pfizer), Mrna-lnp, Bryon Protein, Pf, 30mcg/0.3ml,IM 2020-12-11 00:00:00 Completed Rissa Seybold Covid-19 Vaccine (Pfizer), Mrna-lnp, Bryon Protein, Pf, 30mcg/0.3ml,IM 2020-12-11 00:00:00 Completed Rissa Seybold - External Covid-19 Vaccine (Pfizer), Mrna-lnp, Bryon Protein, Pf, 30mcg/0.3ml,IM 2020-12-11 00:00:00 Completed Rissa Seybold - External Covid-19 Vaccine (Pfizer), Mrna-lnp, Bryon Protein, Pf, 30mcg/0.3ml,IM 2020-11-19 00:00:00 Completed Rissa Seybold - External Covid-19 Vaccine (Pfizer), Mrna-lnp, Bryon Protein, Pf, 30mcg/0.3ml,IM 2020-11-19 00:00:00 Completed Rissa Seybold - External Covid-19 Vaccine (Pfizer), Mrna-lnp, Bryon Protein, Pf, 30mcg/0.3ml,IM 2020-11-19 00:00:00 Completed Rissa Seybold - External Covid-19 Vaccine (Pfizer), Mrna-lnp, Bryon Protein, Pf, 30mcg/0.3ml,IM 2020-11-19 00:00:00 Completed Rissa Seybold - External Covid-19 Vaccine (Pfizer), Mrna-lnp, Bryon Protein, Pf, 30mcg/0.3ml,IM 2020-11-19 00:00:00 Completed Rissa Seybold Covid-19 Vaccine (Pfizer), Mrna-lnp, Bryon Protein, Pf, 30mcg/0.3ml,IM 2020-11-19 00:00:00 Completed Rissa Seybold Covid-19 Vaccine (Pfizer), Mrna-lnp, Bryon Protein, Pf, 30mcg/0.3ml,IM 2020-11-19 00:00:00 Completed Rissa Seybold - External Covid-19 Vaccine (Pfizer), Mrna-lnp, Bryon Protein, Pf, 30mcg/0.3ml,IM 2020-11-19 00:00:00 Completed Rissa Seybold - External Pneumococcal Vaccine, Polysaccharide 2020-07-30 00:00:00 Completed Rissa Seybold - External Pneumococcal Vaccine, Polysaccharide 2020-07-30 00:00:00 Completed Rissa Seybold - External Pneumococcal Vaccine, Polysaccharide 2020-07-30 00:00:00 Completed Rissa Seybold Pneumococcal Vaccine, Polysaccharide 2020-07-30 00:00:00 Completed Rissa Seybold - External HPV (Human Papillomavirus) 2019-12-12 00:00:00 Completed Rissa Seybold - External HPV (Human Papillomavirus) 2019-12-12 00:00:00 Completed Rissa Seybold - External HPV (Human Papillomavirus) 2019-12-12 00:00:00 Completed Rissa Seybold HPV (Human Papillomavirus) 2019-12-12 00:00:00 Completed Rissa Seybold - External HPV (Human Papillomavirus) 2019-07-25 00:00:00 Completed Rissa Seybold - External HPV (Human Papillomavirus) 2019-07-25 00:00:00 Completed Rissa Seybold - External HPV (Human Papillomavirus) 2019-07-25 00:00:00 Completed Rissa Seybold HPV (Human Papillomavirus) 2019-07-25 00:00:00 Completed Rissa Seybold - External HPV (Human Papillomavirus) 2019-05-23 00:00:00 Completed Rissa Seybold - External HPV (Human Papillomavirus) 2019-05-23 00:00:00 Completed Rissa Seybold - External HPV (Human Papillomavirus) 2019-05-23 00:00:00 Completed Rissa Seybold HPV (Human Papillomavirus) 2019-05-23 00:00:00 Completed Rissa Seybold - External Influenza Virus Vaccine, age 6 months and up 2018-07-30 00:00:00 Completed Rissa Seybold - External Influenza Virus Vaccine, age 6 months and up 2018-07-30 00:00:00 Completed Rissa Seybold - External Influenza Virus Vaccine, age 6 months and up 2018-07-30 00:00:00 Completed Rissa Seybold Influenza Virus Vaccine, age 6 months and up 2018-07-30 00:00:00 Completed Rissa Seybold - External Td- Tetanus & Diphtheria Vaccine (age 7+ years) 2016-11-29 00:00:00 Completed Rissa Seybold - External Td- Tetanus & Diphtheria Vaccine (age 7+ years) 2016-11-29 00:00:00 Completed Rissa Seybold - External Td- Tetanus & Diphtheria Vaccine (age 7+ years) 2016-11-29 00:00:00 Completed Rissa Seybold Td- Tetanus & Diphtheria Vaccine (age 7+ years) 2016-11-29 00:00:00 Completed Rissa Seybold - External TD Pres-Free Unknown Completed [facility] Pneumococcal Polysaccharide, PPSV23 (PNEUMOVAX) Unknown Completed [facility] Influenza Virus Vaccine Unknown Completed [facility] Influenza Virus Vaccine Unknown Completed [facility] Influenza Virus Vaccine Quad IM Multi-dose 6+ MO Unknown Completed [facility] Influenza Virus Vaccine Quad IM Multi-dose 6+ MO Unknown Completed [facility] SARS-COV-2 COVID-19 PFIZER VACCINE Unknown Completed [facility] SARS-COV-2 COVID-19 PFIZER VACCINE Unknown Completed [facility] HPV Unspecified Unknown Completed [facility] HPV Unspecified Unknown Completed [facility] HPV Unspecified Unknown Completed [facility] Influenza Virus Vaccine Unknown Completed [facility] TD Pres-Free Unknown Completed [facility] Pneumococcal Polysaccharide, PPSV23 (PNEUMOVAX) Unknown Completed [facility] Influenza Virus Vaccine Unknown Completed [facility] Influenza Virus Vaccine Unknown Completed [facility] Influenza Virus Vaccine Quad IM Multi-dose 6+ MO Unknown Completed [facility] Influenza Virus Vaccine Quad IM Multi-dose 6+ MO Unknown Completed [facility] SARS-COV-2 COVID-19 PFIZER VACCINE Unknown Completed [facility] SARS-COV-2 COVID-19 PFIZER VACCINE Unknown Completed [facility] HPV Unspecified Unknown Completed [facility] HPV Unspecified Unknown Completed [facility] HPV Unspecified Unknown Completed [facility] Influenza Virus Vaccine Unknown Completed [facility] TD Pres-Free Unknown Completed [facility] Pneumococcal Polysaccharide, PPSV23 (PNEUMOVAX) Unknown Completed [facility] Influenza Virus Vaccine Unknown Completed [facility] Influenza Virus Vaccine Unknown Completed [facility] Influenza Virus Vaccine Quad IM Multi-dose 6+ MO Unknown Completed [facility] Influenza Virus Vaccine Quad IM Multi-dose 6+ MO Unknown Completed [facility] SARS-COV-2 COVID-19 PFIZER VACCINE Unknown Completed [facility] SARS-COV-2 COVID-19 PFIZER VACCINE Unknown Completed [facility] HPV Unspecified Unknown Completed [facility] HPV Unspecified Unknown Completed [facility] HPV Unspecified Unknown Completed [facility] Influenza Virus Vaccine Unknown Completed [facility] TD Pres-Free Unknown Completed [facility] Pneumococcal Polysaccharide, PPSV23 (PNEUMOVAX) Unknown Completed [facility] Influenza Virus Vaccine Unknown Completed [facility] Influenza Virus Vaccine Unknown Completed [facility] Influenza Virus Vaccine Quad IM Multi-dose 6+ MO Unknown Completed [facility] Influenza Virus Vaccine Quad IM Multi-dose 6+ MO Unknown Completed [facility] SARS-COV-2 COVID-19 PFIZER VACCINE Unknown Completed [facility] SARS-COV-2 COVID-19 PFIZER VACCINE Unknown Completed [facility] HPV Unspecified Unknown Completed [facility] HPV Unspecified Unknown Completed [facility] HPV Unspecified Unknown Completed [facility] Influenza Virus Vaccine Unknown Completed [facility] TD Pres-Free Unknown Completed [facility] Pneumococcal Polysaccharide, PPSV23 (PNEUMOVAX) Unknown Completed [facility] Influenza Virus Vaccine Unknown Completed [facility] Influenza Virus Vaccine Unknown Completed [facility] Influenza Virus Vaccine Quad IM Multi-dose 6+ MO Unknown Completed [facility] Influenza Virus Vaccine Quad IM Multi-dose 6+ MO Unknown Completed [facility] SARS-COV-2 COVID-19 PFIZER VACCINE Unknown Completed [facility] SARS-COV-2 COVID-19 PFIZER VACCINE Unknown Completed [facility] HPV Unspecified Unknown Completed [facility] HPV Unspecified Unknown Completed [facility] HPV Unspecified Unknown Completed [facility] Influenza Virus Vaccine Unknown Completed [facility] TD Pres-Free Unknown Completed [facility] Pneumococcal Polysaccharide, PPSV23 (PNEUMOVAX) Unknown Completed [facility] Influenza Virus Vaccine Unknown Completed [facility] Influenza Virus Vaccine Unknown Completed [facility] Influenza Virus Vaccine Quad IM Multi-dose 6+ MO Unknown Completed [facility] Influenza Virus Vaccine Quad IM Multi-dose 6+ MO Unknown Completed [facility] SARS-COV-2 COVID-19 PFIZER VACCINE Unknown Completed [facility] SARS-COV-2 COVID-19 PFIZER VACCINE Unknown Completed [facility] HPV Unspecified Unknown Completed [facility] HPV Unspecified Unknown Completed [facility] HPV Unspecified Unknown Completed [facility] Influenza Virus Vaccine Unknown Completed [facility] TD Pres-Free Unknown Completed [facility] Pneumococcal Polysaccharide, PPSV23 (PNEUMOVAX) Unknown Completed [facility] Influenza Virus Vaccine Unknown Completed [facility] Influenza Virus Vaccine Unknown Completed [facility] Influenza Virus Vaccine Quad IM Multi-dose 6+ MO Unknown Completed [facility] Influenza Virus Vaccine Quad IM Multi-dose 6+ MO Unknown Completed [facility] SARS-COV-2 COVID-19 PFIZER VACCINE Unknown Completed [facility] SARS-COV-2 COVID-19 PFIZER VACCINE Unknown Completed [facility] HPV Unspecified Unknown Completed [facility] HPV Unspecified Unknown Completed [facility] HPV Unspecified Unknown Completed [facility] Influenza Virus Vaccine Unknown Completed [facility] Pneumococcal 20 Conjugate, PCV20 (Prevnar 20) Unknown Completed [facility] TDAP Unknown Completed [facility] TD Pres-Free Unknown Completed [facility] Pneumococcal Polysaccharide, PPSV23 (PNEUMOVAX) Unknown Completed [facility] Influenza Virus Vaccine Unknown Completed [facility] Influenza Virus Vaccine Unknown Completed [facility] Influenza Virus Vaccine Quad IM Multi-dose 6+ MO Unknown Completed [facility] Influenza Virus Vaccine Quad IM Multi-dose 6+ MO Unknown Completed [facility] SARS-COV-2 COVID-19 PFIZER VACCINE Unknown Completed [facility] SARS-COV-2 COVID-19 PFIZER VACCINE Unknown Completed [facility] HPV Unspecified Unknown Completed [facility] HPV Unspecified Unknown Completed [facility] HPV Unspecified Unknown Completed [facility] Influenza Virus Vaccine Unknown Completed [facility] Pneumococcal 20 Conjugate, PCV20 (Prevnar 20) Unknown Completed [facility] TDAP Unknown Completed [facility] TD Pres-Free Unknown Completed [facility] Pneumococcal Polysaccharide, PPSV23 (PNEUMOVAX) Unknown Completed [facility] Influenza Virus Vaccine Unknown Completed [facility] Influenza Virus Vaccine Unknown Completed [facility] Influenza Virus Vaccine Quad IM Multi-dose 6+ MO Unknown Completed [facility] Influenza Virus Vaccine Quad IM Multi-dose 6+ MO Unknown Completed [facility] SARS-COV-2 COVID-19 PFIZER VACCINE Unknown Completed [facility] SARS-COV-2 COVID-19 PFIZER VACCINE Unknown Completed [facility] HPV Unspecified Unknown Completed [facility] HPV Unspecified Unknown Completed [facility] HPV Unspecified Unknown Completed [facility] Influenza Virus Vaccine Unknown Completed [facility] Pneumococcal 20 Conjugate, PCV20 (Prevnar 20) Unknown Completed [facility] TDAP Unknown Completed [facility] TD Pres-Free Unknown Completed [facility] Pneumococcal Polysaccharide, PPSV23 (PNEUMOVAX) Unknown Completed [facility] Influenza Virus Vaccine Unknown Completed [facility] Influenza Virus Vaccine Unknown Completed [facility] Influenza Virus Vaccine Quad IM Multi-dose 6+ MO Unknown Completed [facility] Influenza Virus Vaccine Quad IM Multi-dose 6+ MO Unknown Completed [facility] SARS-COV-2 COVID-19 PFIZER VACCINE Unknown Completed [facility] SARS-COV-2 COVID-19 PFIZER VACCINE Unknown Completed [facility] HPV Unspecified Unknown Completed [facility] HPV Unspecified Unknown Completed [facility] HPV Unspecified Unknown Completed [facility] Influenza Virus Vaccine Unknown Completed [facility] Pneumococcal 20 Conjugate, PCV20 (Prevnar 20) Unknown Completed [facility] TDAP Unknown Completed [facility] Vital Signs Vital Name Observation Time Observation Value Comments S ource Systolic blood pressure 2024-04-11 13:23:00 138 mm[Hg] [facility] Diastolic blood pressure 2024-04-11 13:23:00 88 mm[Hg] [facility] Heart rate 2024-04-11 13:23:00 89 /min [facility] Respiratory rate 2024-04-11 13:23:00 18 /min [facility] Body height 2024-04-11 13:23:00 165.1 cm [facility] Body weight 2024-04-11 13:23:00 129.819 kg [facility] BMI 2024-04-11 13:23:00 47.63 kg/m2 [facility] Oxygen saturation in Arterial blood by Pulse oximetry 2024-04-11 13:23:00 99 /min [facility] Systolic blood pressure 2023-10-12 13:55:00 118 mm[Hg] [facility] Diastolic blood pressure 2023-10-12 13:55:00 68 mm[Hg] [facility] Heart rate 2023-10-12 13:55:00 91 /[facility] 2023-10-12 13:55:00 16 /min [facility] Body height 2023-10-12 13:55:00 165.1 cm [facility] Body weight 2023-10-12 13:55:00 126.417 kg [facility] BMI 2023-10-12 13:55:00 46.38 kg/m2 [facility] Oxygen saturation in Arterial blood by Pulse oximetry 2023-10-12 13:55:00 100 /min [facility] Systolic blood pressure 2022-09-30 13:03:00 116 mm[Hg] Rissa Seybo ld - External Diastolic blood pressure 2022-09-30 13:03:00 86 mm[Hg] Rissa Seybo ld - External Heart rate 2022-09-30 13:03:00 102 /min Kelse y Seybold - External Body temperature 2022-09-30 13:03:00 36.78 Madelyn Rissa Seybold - External Respiratory rate 2022-09-30 13:03:00 16 /min Rissa Seybold - External Body height 2022-09-30 13:03:00 165.1 cm Tootie ey Seybold - External Body weight 2022-09-30 13:03:00 122.018 kg Tootie ey Seybold - External BMI 2022-09-30 13:03:00 44.76 kg/m2 Tootie ey Seybold - External Body weight 2022-08-25 13:23:00 124.286 kg Tootie ey Seybold - External BMI 2022-08-25 13:23:00 45.60 kg/m2 Tootie ey Seybold - External Systolic blood pressure 2022-08-25 13:23:00 104 mm[Hg] Rissa Seybo ld - External Diastolic blood pressure 2022-08-25 13:23:00 78 mm[Hg] Rissa Seybo ld - External Heart rate 2022-08-25 13:23:00 95 /min Kelse y Seybold - External Body temperature 2022-08-25 13:23:00 35.67 Madelyn Rissa Seybold - External Respiratory rate 2022-08-25 13:23:00 14 /min Rissa Seybold - External Body height 2022-08-25 13:23:00 165.1 cm Tootie ey Seybold - External Systolic blood pressure 2021-11-11 14:29:00 134 mm[Hg] Rissa Seybo ld Diastolic blood pressure 2021-11-11 14:29:00 73 mm[Hg] Rissa ybo ld Heart rate 2021-11-11 14:29:00 95 /min Kelse y Seybold Body temperature 2021-11-11 14:29:00 36.44 Madelyn Rissa Seybold Respiratory rate 2021-11-11 14:29:00 15 /min Rissa Seybold Body height 2021-11-11 14:29:00 165.1 cm Tootie ey Seybold Body weight 2021-11-11 14:29:00 120.294 kg Tootie ey Seybold BMI 2021-11-11 14:29:00 44.13 kg/m2 Tootie ey Seybold Procedures Procedure Date / Time Performed Performing Clinician Source TDAP VACCINE, >11 YRS, IM 2024-04-11 13:42:14 Lavonne Barillas [facility] PNEUMOCOCCAL 20 CONJUGATE (PREVNAR 20) VACCINE 2024-04-11 13:42:14 Lavonne Barillas [facility] EXTERNAL PROVIDER RECORDS 2024-02-08 05:01:00 Doctor Unassigned, [place] [facility] BI DIAGNOSTIC TOMOSYNTHESIS LEFT 2023-03-16 15:00:00 Requisition, Paper [facility] BI SCREENING TOMOSYNTHESIS BILATERAL 2022-12-22 14:23:00 Requisition, Paper [facility] CONSENT/REFUSAL FOR DIAGNOSIS AND TREATMENT 2022-12-22 13:55:29 Doctor Unassigned, [place] [facility] ASSIGNMENT OF BENEFITS 2022-12-22 13:55:15 Docto r Unassigned, [place] [facility] US ABDOMEN COMPLETE 2019-12-26 16:34:04 Jess Jensen [facility] NOTICE OF PRIVACY PRACTICES 2019-12-26 15:41:04 Doctor Unassigned, [place] [facility] CONSENT/REFUSAL FOR DIAGNOSIS AND TREATMENT 2019-12-26 15:40:23 Doctor Unassigned, [place] [facility] ASSIGNMENT OF BENEFITS 2019-12-26 15:39:56 Docto r Unassigned, [place] [facility] Encounters Start Date/Time End Date/Time Encounter Type Admission Type Attending [facility] Care Facility Care Department Encounter ID Source 2024-10-10 09:40:00 2024-10-10 09:40:00 Outpatient R LAVONNE BARILLAS [facility] [id number] [facility] 2024-05-25 07:55:24 2024-05-25 23:59:00 Outpatient R TAMAR CORTEZ [facility] [id number] [facility] 2024-05-25 07:55:24 2024-05-25 23:59:00 Hospital Encounter Tamar Cortez [facility] 1.2.840.114 350.1.13.10 4.2.7.2.686 [id number] [facility] 2024-04-11 09:00:00 2024-04-11 09:15:00 Painter [place] Visit Lab, Lavonne Briceño [facility] 1..840.114 350.1.13.10 4.2.7.2.686 [id number] [facility] 2024-04-11 08:20:00 2024-04-11 08:53:43 Outpatient LAVONNE STAHL [facility] [id number] [facility] 2024-04-11 08:20:00 2024-04-11 08:53:43 Office Visit [place] , Lavonne [facility] 1.84.114 350.1.13.10 4.2.7.2.686 [id number] [facility] 2024-02-08 00:00:00 2024-02-08 00:00:00 Orders Only Doctor Unassigned, [place] [facility] 1..114 350.1.13.10 4.2.7.2.686 [id number] [facility] 2023-11-01 00:00:00 2023-11-01 00:00:00 Patient Secure Msg Lavonne Barillas Bryant [facility] 1.84.114 350.1.13.10 4.2.7.2.686 [id number] [facility] 2023-10-14 00:00:00 2023-10-14 00:00:00 Case Management Lavonne Barillas [facility] 1.840.114 350.1.13.10 4.2.7.2.686 [id number] [facility] 2023-10-12 08:45:00 2023-10-12 08:49:54 Painter [place] Visit Lab, Ang - Lavonne Zurita [facility] 1.84.114 350.1.13.10 4.2.7.2.686 [id number] [facility] 2023-10-12 08:00:00 2023-10-12 08:34:14 Outpatient R LAVONNE BARILLAS [facility] [id number] [facility] 2023-10-12 08:00:00 2023-10-12 08:34:14 Office Visit Lavonne Barillas [facility] 1.840.114 350.1.13.10 4.2.7.2.686 [id number] [facility] 2023-07-25 00:00:00 2023-07-25 00:00:00 Outpatient ESTEE LIZABETH RISSA ARCE [id number] [facility] 2023-04-10 00:00:00 2023-04-10 00:00:00 Outpatient ESTEE LIZABETH ARCE [id number] [facility] 2023-03-16 09:31:25 2023-03-16 23:59:00 Hospital Encounter Radiology [facility] 1.2.840.114 350.1.13.10 4.2.7.2.686 [id number] [facility] 2023-03-16 09:30:41 2023-03-16 09:30:41 Hospital Encounter Radiology [facility] 1.2.840.114 350.1.13.10 4.2.7.2.686 [id number] [facility] 2023-03-16 09:30:41 2023-03-16 09:30:41 Outpatient R RADIOLOGY [facility] [id number] [facility] 2023-02-03 11:10:00 2023-02-03 11:10:00 Outpatient RISSA ARCE [id number] Rissa [facility] 2023-02-03 00:00:00 2023-02-03 00:00:00 Outpatient VALERIA HEARD [id number] [facility] 2023-01-29 14:30:00 2023-01-29 14:30:00 Outpatient RISSA ARCE [id number] Rissa Rodarte 2023-01-29 13:20:00 2023-01-29 13:20:00 Outpatient RISSA ARCE [id number] Rissa Rodarte 2023-01-25 00:00:00 2023-01-25 00:00:00 Outpatient VALERIA HEARD [id number] Rissa Rodarte 2023-01-25 00:00:00 2023-01-25 00:00:00 Outpatient VALERIA HEARD RISSA ARCE [id number] Rissa Rodarte 2022-12-31 00:00:00 2022-12-31 00:00:00 Outpatient VALERIA HEARD RISSA ARCE [id number] Rissa Rodarte 2022-12-22 07:56:04 2022-12-22 23:59:00 Outpatient R RADIOLOGY [facility] [id number] [facility] 2022-12-22 07:56:04 2022-12-22 23:59:00 Hospital Encounter Radiology [facility] 1.2.840.114 350.1.13.10 4.2.7.2.686 [id number] [facility] 2022-11-23 09:00:00 2022-11-23 09:00:00 Outpatient ANN MARIE LOPEZ [id number] Rissa norris 2022-09-30 08:15:00 2022-09-30 08:15:00 Outpatient YENNI SU [id number] Rissa norris 2022-09-29 15:40:00 2022-09-29 15:40:00 Outpatient KASSI WILSON [id number] Rissa aaronnorris 2022-09-22 08:55:00 2022-09-22 08:55:00 Outpatient LAB90 RISSA ARCE [id number] Rissa norris 2022-08-26 00:00:00 2022-08-26 00:00:00 Outpatient LIZABETH FONTANEZ [id number] Rissa Rodarte 2022-08-26 00:00:00 2022-08-26 00:00:00 Outpatient LIZABETH FONTANEZ [id number] Rissa Rodarte 2022-08-25 09:20:00 2022-08-25 09:20:00 Outpatient LAB90 RISSA ARCE [id number] Rissa dolly 2022-08-25 08:30:00 2022-08-25 08:30:00 Outpatient LIZABETH FONTANEZ RISSA ARCE [id number] Rissa Perrynorris 2022-08-11 15:30:00 2022-08-11 15:30:00 Outpatient [id number]-[id number] RISSA ARCE [id number] Rissa Rodarte 2022-08-11 13:30:00 2022-08-11 13:45:00 Office Visit Valeria Heard 1.2.840.114 350.1.13.13 1.2.7.2.686 [id number] Rissa Perrynorris 2021-11-11 09:15:00 2021-11-11 09:15:00 Outpatient LAB90 RISSA ARCE [id number] Rissa Perrynorris 2021-11-11 08:30:00 2021-11-11 09:00:00 Office Visit Yenni Su [place] 1.2.840.114 350.1.13.13 1.2.7.2.686 [id number] Rissa Rodarte 2021-11-11 00:00:00 2021-11-11 00:00:00 Outpatient SHARLENEYENNI MACIAS RISSA ARCE [id number] Rissa Rodarte 2021-11-05 08:30:00 2021-11-05 08:30:00 Outpatient YENNI SU [id number] Rissa Rodarte 2021-08-01 09:15:00 2021-08-01 09:15:00 Outpatient LAB90 RISSA ARCE [id number] Rissa Rodarte 2021-08-01 08:30:00 2021-08-01 08:30:00 Outpatient YENNI SU [id number] Rissa Cayden 2019-12-26 09:37:00 2019-12-26 23:59:00 Hospital Encounter Dano Jensen [facility] 1.2.840.114 350.1.13.10 4.2.7.2.686 [id number] 2019-12-26 09:37:00 2019-12-26 23:59:00 Hospital Encounter Dano Jensen [facility] 1.2.840.114 350.1.13.10 4.2.7.2.686 [id number] [facility] 2019-08-17 00:00:00 2019-08-17 00:00:00 Telephone Team, [facility] 1.2.840.114 350.1.13.10 4.2.7.2.686 [id number] [facility] 2019-08-17 00:00:00 2019-08-17 00:00:00 Transition of Care [facility] 1.2.840.114 350.1.13.10 4.2.7.2.686 [id number] [facility] 2019-08-17 00:00:00 2019-08-17 00:00:00 Telephone Team, [facility] 1.2.840.114 350.1.13.10 4.2.7.2.686 [id number] 2019-08-17 00:00:00 2019-08-17 00:00:00 Transition of Care [facility] 1.2.840.114 350.1.13.10 4.2.7.2.686 [id number] 2019-08-15 00:00:00 2019-08-15 00:00:00 Transition of Care [facility] 1.2.840.114 350.1.13.10 4.2.7.2.686 [id number] [facility] 2019-08-15 00:00:00 2019-08-15 00:00:00 Transition of Care [facility] 1.2.840.114 350.1.13.10 4.2.7.2.686 [id number] Results Test Description Test Time Test Comments Results Resul t Comments Source US ABDOMEN COMPLETE 2019-11-30 16:41:25 HISTORY: Generalized abdominal pain. TECHNIQUE: Upper abdominal organs were evaluated in multiple planes withthe patient in multiple different positions, without and with colorimaging. FINDINGS: Liver is enlarged, 19.1 cm, spleen is 10.4 x 6.2 cm, right kidneyis 10.3 x 4.2 x 4.9 cm and left kidney is 10.1 x 4.2 x 4.4 cm in size. Nofocal lesions are detected in these organs. Cortex of both kidneys rangebetween 14 mm and 15 mm. No hydronephrosis, free fluid in the upper abdomenor aortic aneurysm detected. Visualized portions of the pancreas appearnormal. Hepatic and portal venous system appear patent, with hepatopetalportal flow noted. Gallbladder appears to be contracted, however, no edema or thickening ofthe hawk detected. No gallstones detected. Common hepatic duct is 3.4 mm. CONCLUSIONS: Mild hepatomegaly, otherwise normal study. [facility] Results Inft User - 12/26/2019 10:42 AM CSTHISTORY: Generalized abdominal pain.TECHNIQUE: Upper abdominal organs were evaluated in multiple planes withthe patient in multiple different positions, without and with colorimaging.FINDINGS : Liver is enlarged, 19.1 cm, spleen is 10.4 x 6.2 cm, right kidneyis 10.3 x 4.2 x 4.9 cm and left kidney is 10.1 x 4.2 x 4.4 cm in size. Nofocal lesions are detected in these organs. Cortex of both kidneys rangebetween 14 mm and 15 mm. No hydronephrosis, free fluid in the upper abdomenor aortic aneurysm detected. Visualized portions of the pancreas appearnormal. Hepatic and portal venous system appear patent, with hepatopetalportal flow noted.Gallbladder appears to be contracted, however, no edema or thickening ofthe hawk detected. No gallstones detected. Common hepatic duct is 3.4 mm.CONCLUSIONS: Mild hepatomegaly, otherwise normal study. [facility] Notes Date/Time Note Provider Source 2024-04-11 09:00:00 Images from the original note were not included. Venipuncture collection performed by clean technique on the left anticubitus. Total of 1 attempts were made. Slight pressure and a bandage/dressing were applied to the site(s). The patient experienced no complications. The following specimens were processed according to instructions and sent to [facility] laboratories per lab order on 04/11/2024 : LT BLUE SST 1 RED LAV 1 PPT DK GREEN (LiHep) DK GREEN (SodH) WOOTEN DK BLUE (K2) DK BLUE (S) ACD Blood Culture NIPT/NTD [facility]
[2024-08-12] MEDS ORDERED: MORPHINE 4 MG/ML SYR ONE (17:20)
[2024-08-12] MEDS ORDERED: ONDANSETRON 4 MG/2 ML VIAL ONE ×2 (17:20→20:47)
[2024-08-12] MEDS ORDERED: NA CHLORIDE 0.9% 1,000 ML ONE ×2 (17:21→19:45)
[2024-08-12 17:25] LABS: Absolute Basophils 0.2 K/uL (0-0.5); Absolute Eosinophils 0.1 K/uL (0-0.5); Absolute Lymphocytes (CBC) 1.8 K/uL (0.7-4.9); Absolute Monocytes 0.8 K/uL (0.1-1.3); Absolute Neutrophil 14.4 K/uL (1.8-8.0); Eosinophils % 0.3 % (0-4.4); Hematocrit 38.1 % (36.0-45.0); Hemoglobin 12.1 g/dL (12.0-15.0); Lymphocytes % 10.4 % (15.3-44.8); MCH 19.2 pg (27.0-35.0); MCHC 31.8 g/dL (32.0-36.0); MCV 60.3 fL (80-100); MPV 8.8 fL (7.6-11.3); Monocytes % 4.7 % (3.3-12.3); Neutrophils % 83.6 % (41.7-73.7); Platelets 463 thou/uL (152-406); RBC Red Blood Cell Count 6.32 M/uL (3.86-4.86); Red Cell Distribution Width 15.6 % (12.1-15.2)
[2024-08-12 17:29] LABS: Specific Gravity 1.018 (1.005-1.030); Sqamous Epithelial <5 /HPF (None Seen); Urine Bacteria None Seen /HPF (<20); Urine Bilirubin NEGATIVE (Negative); Urine Blood Negative (Negative); Urine Clarity Turbid (Clear); Urine Color Yellow (Yellow); Urine Culture Reflex Order NOT NEEDED; Urine Glucose NEGATIVE (Negative); Urine Ketones 1+ (Negative); Urine Microscopic Reflex YN ORDER UMIC; Urine Mucus Slight /HPF (None Seen); Urine Nitrite NEGATIVE (Negative); Urine Protein TRACE (Negative); Urine RBC None Seen /HPF (None Seen); Urine Urobilinogen Normal (Normal); Urine WBC <5 /HPF (<5); Urine pH 5.5 (5.0-7.0)
[2024-08-12 17:39] LABS: PT Prothrombin Time 11.6 SECONDS (9.4-12.5); PTT, Activated Partial Thromb 31.3 SECONDS (24.3-36.9); Protime INR 1.04
[2024-08-12 17:54] LABS: Albumin 2.9 g/dL (3.4-5.0); Albumin/Globulin Ratio 0.6 (1.1-1.8); Anion Gap 11.2 mEq/L (5.0-15.0); Bilirubin Total 0.7 mg/dL (0.2-1.0); Globulin 4.8 g/dL (2.3-3.5); Potassium 4.2 mEq/L (3.5-5.1); Protein, Total 7.7 g/dL (6.4-8.2)
[2024-08-12 17:59] LABS: Anisocytosis 2+; Blood Morphology Comment NOTED (NOT SEEN); Hypochromasia 2+; Platelet Estimate INCR; White Blood Cell Scan OK (OK)
[2024-08-12 18:44] LABS: Specific Gravity 1.018 (1.005-1.030)
[2024-08-12] MEDS ORDERED: CIPROFLOXACIN 400mg IV 400 MG/200 ML BAG IV ONE (18:50)
[2024-08-12] MEDS ORDERED: METRONIDAZOLE 500mg IVPB 500 MG/100 ML BAG IV ONE (18:51)
--- NOTE | 2024-08-12 18:58 | EDPHYS ---
Physician Documentation [facility] Name: Moriah Garcia Age: 43 yrs Sex: Female : 1980 Arrival Date: 08/12/2024 Time: 15:10 Bed 12 Private MD: Holland Navarro HPI: 08/12 17:01 This 43 yrs old Female presents to ER via Ambulatory with complaints of Abdominal Pain, sb4 Nausea/Vomiting. 17:01 The patient presents with abdominal pain in the lower abdomen. Onset: The sb4 symptoms/episode began/occurred yesterday. The symptoms do not radiate. Associated signs and symptoms: Pertinent positives: nausea and vomiting. Patient states that she started experiencing nausea vomiting and abdominal pain last night. States that she has had issues with this in the past, had EGDs/colonoscopies, diagnosed with ileitis. Says that in the past, it has been treated with pain medication and antibiotics. States that she has not had a flareup in 4 years since taking probiotics, Zofran, and dicyclomine. 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 - control method, Not tl4 Historical: - Allergies: 16:02 Aspirin; cm10 16:02 NSAIDS; cm10 16:02 Peanut (Legumes); cm10 16:02 Coconut; cm10 - Home Meds: 22:09 Synthroid 137 mcg Oral tablet daily [Active]; spironolactone 50 mg Oral tablet daily tl4 [Active]; Singulair 10 mg Oral tablet daily [Active]; lisinopril 10 mg Oral tablet daily [Active]; Advair Diskus 250-50 mcg/dose Inhl Blister, With Inhalation Device 1 inhalation 2 times per day [Active]; Loren 28 Oral daily [Active]; albuterol sulfate 90 mcg/actuation inhalation HFA Aerosol Inhaler [Active]; albuterol sulfate 2.5 mg /3 mL (0.083 %) inhalation Solution for Nebulization [Active]; - PMHx: 16:02 Asthma; Jemal's; ibs; PCOS; Thalessemia; cm10 - Immunization history:: Adult Immunizations. - Infectious Disease History:: Denies. - Social history:: Smoking status: Patient denies any tobacco usage or history of. ROS: 17:01 Constitutional: Negative for fever, chills, and weight loss, sb4 17:01 Abdomen/GI: Positive for abdominal pain, nausea and vomiting, 17:01 All other systems are negative, Exam: 17:01 Head/Face: Normocephalic, atraumatic. Eyes: Extra-ocular motions intact. Periorbital sb4 areas with no swelling, redness, or edema. ENT: Mucous membranes moist. Cardiovascular: Regular rate and rhythm with a normal S1 and S2. Respiratory: Lungs have equal breath sounds bilaterally, clear to auscultation and percussion. No rales, rhonchi or wheezes noted. No increased work of breathing, no retractions or nasal flaring. Skin: Warm, dry with normal turgor. Normal color with no rashes, no lesions, and no evidence of cellulitis. MS/ Extremity: Pulses equal, no cyanosis. Neurovascular intact. Full, normal range of motion. 17:01 Constitutional: The patient appears alert, awake, obese, in obvious pain, uncomfortable, 17:01 Abdomen/GI: Inspection: obese Bowel sounds: normal, Palpation: soft, moderate abdominal tenderness, in the right lower quadrant and left lower quadrant, Vital Signs: 16:01 BP 139 / 84; Pulse 111; Resp 18; Temp 98.4; Pulse Ox 97% on R/A; Weight 127.01 kg; cm10 Height 5 ft. 5 in. ; Pain 4/10; 18:30 BP 130 / 87; Pulse 88; Resp 14; Pulse Ox 100% on R/A; tl4 19:40 BP 121 / 85; Pulse 90; Resp 14; Pulse Ox 99% on R/A; tl4 20:24 BP 135 / 96; Pulse 88; Resp 23; Temp 97.9(O); Pulse Ox 100% on R/A; tl4 16:01 Body Mass Index 46.59 (127.01 kg, 165.1 cm) cm10 16:01 Pain Scale: Adult cm10 MDM: 16:04 Patient medically screened. sb4 19:06 Differential diagnosis: Nonspecific abd pain, gastritis, cholecystitis, pancreatitis, andreina appendicitis, diverticulitis, viral gastroenteritis, gastroenteritis. Data reviewed: vital signs, nurses notes, lab test result(s), radiologic studies, CT scan. Consideration of Admission/Observation Patient was admitted/placed on observation. Escalation of care including admission/observation considered. I considered the following discharge prescriptions or medication management in the emergency department Medications were administered in the Emergency Department. See MAR. Independent interpretation of the following test(s) in the Emergency Department CT Scan: My interpretation is ct abd pel. Test considered but Not performed: Ultrasound no abd usg. Care significantly affected by the following chronic conditions: Obesity, asthma, hasimotos, ibs, pcos, thalasemia. 08/12 16:44 Order name: Blood Culture Adult (2) sb 08/12 16:44 Order name: CBC with Diff; Complete Time: 17:59 sb4 08/12 16:44 Order name: CMP; Complete Time: 17:55 sb4 08/12 16:44 Order name: Lactate w/ 2H reflex if indic.; Complete Time: 17:48 sb4 08/12 16:44 Order name: Protime (+inr); Complete Time: 17:41 sb4 08/12 16:44 Order name: Ptt, Activated; Complete Time: 17:41 sb4 08/12 16:44 Order name: Urinalysis w/ reflexes; Complete Time: 17:30 sb4 08/12 16:44 Order name: Lipase; Complete Time: 17:55 sb4 08/12 17:33 Order name: CBC Smear Scan; Complete Time: 17:59 EDMI 08/12 18:40 Order name: Test, Urine; Complete Time: 18:53 cm10 08/12 19:44 Order name: Magnesium; Complete Time: 09:05 EDMS 08/12 19:44 Order name: Phosphorus; Complete Time: 09:05 EDMS 08/12 19:44 Order name: Urinalysis w/ reflexes EDMS 08/12 19:44 Order name: Basic Metabolic Panel EDMS 08/12 19:44 Order name: Basic Metabolic Panel; Complete Time: 09:05 EDMS 08/12 19:44 Order name: CBC with Automated Diff EDMS 08/12 19:44 Order name: CBC with Automated Diff; Complete Time: 09:05 EDMS 08/12 16:44 Order name: CT Abd/Pelvis - IV Contrast Only; Complete Time: 19:43 sb4 08/12 16:44 Order name: Cardiac monitoring; Complete Time: 16:53 sb4 08/12 16:44 Order name: IV Saline Lock - Large Bore; Complete Time: 17:23 sb4 08/12 16:44 Order name: Labs collected and sent; Complete Time: 17:23 sb4 08/12 16:44 Order name: O2 Per Protocol; Complete Time: 16:53 sb4 08/12 16:44 Order name: O2 Sat Monitoring; Complete Time: 16:53 sb4 08/12 16:44 Order name: Vital Signs; Complete Time: 16:53 sb4 Administered Medications: 17:31 Drug: NS 0.9% IV 1000 ml IV at 1 bolus Per protocol; 1000 mL bolus Route: IV; Rate: 1 tl4 bolus; Site: left antecubital; Delivery: Primary tubing; 18:40 Follow up: IV Status: Completed infusion; IV Intake: 1000ml tl4 17:32 Drug: Ondansetron IVP 4 mg IVP once; over 2 minutes Route: IVP; Infused Over: 2 mins; tl4 Site: left antecubital; 18:00 Follow up: Response: No adverse reaction; Nausea is decreased tl4 17:35 Drug: morphine IVP or IV 4 mg IVP once over 4 mins Route: IVP; Infused Over: 4 mins; tl4 Site: left antecubital; 18:00 Follow up: Response: No adverse reaction; Pain is decreased tl4 19:48 Drug: NS 0.9% IV 1000 ml IV at 1 bolus Per protocol; 1000 mL bolus Route: IV; Rate: 1 tl4 bolus; Site: left antecubital; Delivery: Primary tubing; 21:57 Follow up: Response: No adverse reaction; IV Status: Completed infusion; IV Intake: tl4 1000ml 19:49 Drug: Ciprofloxacin IVPB 400 mg 200 ml IVPB once over 60 mins Volume: 200 ml; Route: tl4 IVPB; Infused Over: 60 mins; Site: left antecubital; 21:57 Follow up: Response: No adverse reaction; IV Status: Completed infusion tl4 19:49 Drug: metroNIDAZOLE IVPB 500 mg 100 ml IVPB at 200 ml/hr once over 30 mins Volume: 100 tl4 ml; Route: IVPB; Rate: 200 ml/hr; Infused Over: 30 mins; Site: left antecubital; 21:57 Follow up: Response: No adverse reaction; IV Status: Completed infusion tl4 Disposition: 19:07 Co-signature as Attending Physician, Holland DUBOSE I agree with the assessment and andreina plan of care. 08/13 09:05 Chart complete. sb4 Disposition Summary: 08/12/24 18:57 Hospitalization Ordered Notes: Hospitalization Status: Inpatient Admission andreina Provider: Prince andreina Kelly Location: Telemetry/MedSurg (Inpatient) andreina Condition: Stable andreina Problem: new andreina Symptoms: have improved andreina Bed/Room Type: Standard [facility] Room Assignment: 219(08/12/24 19:53) eb Diagnosis - Abdominal pain, Generalized andreina - Vomiting andreina - Elevated white blood cell count andreina - Other viral enteritis andreina Forms: - Medication Reconciliation Form andreina - SBAR form andreina - Leadership Thank You Letter andreina Signatures: Dispatcher [employer] EDMS Holland España MD MD cha Botello, Elizabeth eb Brown, Sophia, PA-C PAFreddy sb4 Nishi Crabtree, RN RN cm10 Jude Wilde RN RN tl4 Corrections: (The following items were deleted from the chart) 08/12 16:44 16:44 BLOOD CULTURE*+BA.LAB.BRZ ordered. EDMS EDMS 16:44 16:44 CBC+H.LAB.BRZ ordered. EDMS EDMS 16:44 16:44 COMPREHENSIVE METABOLIC PANEL+C.LAB.BRZ ordered. EDMS EDMS 16:44 16:44 LACTATE+C.LAB.BRZ ordered. EDMS EDMS 16:44 16:44 PROTIME (+INR)+COAG.LAB.BRZ ordered. EDMS EDMS 16:44 16:44 PTT, ACTIVATED+COAG.LAB.BRZ ordered. EDMS EDMS 16:44 16:44 Urinalysis+U.LAB.BRZ ordered. EDMS EDMS 16:44 16:44 LIPASE+C.LAB.BRZ ordered. EDMS EDMS 19:53 18:57 andreina eb
--- NOTE | 2024-08-12 18:58 | ER ---
Nurse's Notes [facility] Name: Moriah Garcia Age: 43 yrs Sex: Female : 1980 Arrival Date: 08/12/2024 Time: 15:10 Bed 12 Private MD: Diagnosis: Abdominal pain, Generalized;Vomiting;Elevated white blood cell count;Other viral enteritis Presentation: 08/12 16:01 Chief complaint: Patient states: Abdominal pain, nausea and vomiting onset last night. cm10 Pt reports that the pain is to her upper abdomen and radiates to her belly button. Coronavirus screen: Client denies travel out of the [place] in the last 14 days. Ebola Screen: Patient denies travel to an Ebola-affected area in the 21 days before illness onset. No symptoms or risks identified at this time. Initial Sepsis Screen: Does the patient meet any 2 criteria? HR > 90 bpm. Does the patient have a suspected source of infection? No. Patient's initial sepsis screen is negative. Risk Assessment: Do you want to hurt yourself or someone else? Patient reports no desire to harm self or others. Onset of symptoms was August 12, 2024. 16:01 Method Of Arrival: Ambulatory cm10 16:01 Acuity: ZUHAIR 3 cm10 Triage Assessment: 16:03 General: Appears in no apparent distress. comfortable, Behavior is calm, cooperative. cm10 Neuro: No deficits noted. Level of Consciousness is awake, alert, obeys commands, Oriented to person, place, time, situation, Appropriate for age. Respiratory: No deficits noted. Airway is patent Respiratory effort is even, unlabored, Respiratory pattern is regular, symmetrical. 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 N/A - control method, Not tl4 Historical: - Allergies: 16:02 Aspirin; cm10 16:02 NSAIDS; cm10 16:02 Peanut (Legumes); cm10 16:02 Coconut; cm10 - Home Meds: 22:09 Synthroid 137 mcg Oral tablet daily [Active]; spironolactone 50 mg Oral tablet daily tl4 [Active]; Singulair 10 mg Oral tablet daily [Active]; lisinopril 10 mg Oral tablet daily [Active]; Advair Diskus 250-50 mcg/dose Inhl Blister, With Inhalation Device 1 inhalation 2 times per day [Active]; Loren 28 Oral daily [Active]; albuterol sulfate 90 mcg/actuation inhalation HFA Aerosol Inhaler [Active]; albuterol sulfate 2.5 mg /3 mL (0.083 %) inhalation Solution for Nebulization [Active]; - PMHx: 16:02 Asthma; Jemal's; ibs; PCOS; Thalessemia; cm10 - Immunization history:: Adult Immunizations. - Infectious Disease History:: Denies. - Social history:: Smoking status: Patient denies any tobacco usage or history of. Screenin:25 [facility] ED Fall Risk Assessment (Adult) History of falling in the last 3 months, tl4 including since admission No falls in past 3 months (0 pts) Confusion or Disorientation No (0 pts) Intoxicated or Sedated No (0 pts) Impaired Gait No (0 pts) Mobility Assist Device Used No (0 pt) Altered Elimination No (0 pt) Score/Fall Risk Level 0 - 2 = Low Risk Oriented to surroundings, Maintained a safe environment, Educated pt \T\ family on fall prevention, incl call for assistance when getting out of bed, Assessed \T\ reinforced patient's understanding of fall precautions. 17:25 Abuse screen: Denies threats or abuse. Denies injuries from another. Nutritional tl4 screening: No deficits noted. Tuberculosis screening: No symptoms or risk factors identified. Assessment: 18:44 General: Appears in no apparent distress. Behavior is cooperative. Pain: Complains of tl4 pain in abdomen. Neuro: Level of Consciousness is awake, alert, obeys commands, Oriented to person, place, time, situation, Moves all extremities. Full function Gait is steady, Speech is normal. Cardiovascular: Capillary refill < 3 seconds Patient's skin is warm and dry. Respiratory: Airway is patent Respiratory effort is even, unlabored, Respiratory pattern is regular, symmetrical. GI: Bowel sounds present X 4 quads. Abd is soft and non tender Reports lower abdominal pain, upper abdominal pain, nausea, vomiting. : No signs and/or symptoms were reported regarding the genitourinary system. EENT: No signs and/or symptoms were reported regarding the EENT system. Derm: No signs and/or symptoms reported regarding the dermatologic system. Musculoskeletal: No signs and/or symptoms reported regarding the musculoskeletal system. 20:02 Reassessment: Patient and/or family updated on plan of care and expected duration. Pain tl4 level reassessed. Patient is alert, oriented x 3, equal unlabored respirations, skin warm/dry/pink. Pt updated on status. Call correa at bedside. Family at bedside. Will continue to monitor. Vital Signs: 16:01 BP 139 / 84; Pulse 111; Resp 18; Temp 98.4; Pulse Ox 97% on R/A; Weight 127.01 kg; cm10 Height 5 ft. 5 in. ; Pain 4/10; 18:30 BP 130 / 87; Pulse 88; Resp 14; Pulse Ox 100% on R/A; tl4 19:40 BP 121 / 85; Pulse 90; Resp 14; Pulse Ox 99% on R/A; tl4 20:24 BP 135 / 96; Pulse 88; Resp 23; Temp 97.9(O); Pulse Ox 100% on R/A; tl4 16:01 Body Mass Index 46.59 (127.01 kg, 165.1 cm) cm10 16:01 Pain Scale: Adult cm10 ED Course: 15:13 Patient arrived in ED. ra3 15:43 Jenn Macedo PA-C is PHCP. sb4 15:43 Holland España MD is Attending Physician. sb4 16:02 Triage completed. cm10 16:03 Arm band placed on Patient placed in waiting room. cm10 17:23 Blood Culture Adult (2) Sent. tl4 17:23 CBC with Diff Sent. tl4 17:23 CMP Sent. tl4 17:24 Patient has correct armband on for positive identification. Placed in gown. Bed in low tl4 position. Call light in reach. Side rails up X 1. Adult w/ patient. Provided Education on: ed process, call correa. Client placed on continuous cardiac and pulse oximetry monitoring. NIBP monitoring applied. bi analyst on. Door closed. Noise minimized. Lights dimmed. Moved to private room. Warm blanket given. 17:24 Lactate w/ 2H reflex if indic. Sent. tl4 17:24 Protime (+inr) Sent. tl4 17:24 Ptt, Activated Sent. tl4 17:24 Urinalysis w/ reflexes Sent. tl4 17:24 Lipase Sent. tl4 17:24 No provider procedures requiring assistance completed. Inserted saline lock: 18 gauge tl4 in left antecubital area, using aseptic technique. Blood collected. Flushed with 10 mL NS. 17:24 Initial lab(s) drawn, by me, sent to lab. First set of blood cultures drawn by me. tl4 18:00 Second set of blood cultures drawn by me. tl4 18:07 Jude Wilde, LEIGH is Primary Nurse. tl4 18:41 Test, Urine Sent. tl4 18:55 Prince Kelly MD is Hospitalizing Provider. andreina 19:17 CT Abd/Pelvis - IV Contrast Only In Process Unspecified. EDMS 21:58 Patient admitted, IV remains in place. tl4 Administered Medications: 17:31 Drug: NS 0.9% IV 1000 ml IV at 1 bolus Per protocol; 1000 mL bolus Route: IV; Rate: 1 tl4 bolus; Site: left antecubital; Delivery: Primary tubing; 18:40 Follow up: IV Status: Completed infusion; IV Intake: 1000ml tl4 17:32 Drug: Ondansetron IVP 4 mg IVP once; over 2 minutes Route: IVP; Infused Over: 2 mins; tl4 Site: left antecubital; 18:00 Follow up: Response: No adverse reaction; Nausea is decreased tl4 17:35 Drug: morphine IVP or IV 4 mg IVP once over 4 mins Route: IVP; Infused Over: 4 mins; tl4 Site: left antecubital; 18:00 Follow up: Response: No adverse reaction; Pain is decreased tl4 19:48 Drug: NS 0.9% IV 1000 ml IV at 1 bolus Per protocol; 1000 mL bolus Route: IV; Rate: 1 tl4 bolus; Site: left antecubital; Delivery: Primary tubing; 21:57 Follow up: Response: No adverse reaction; IV Status: Completed infusion; IV Intake: tl4 1000ml 19:49 Drug: Ciprofloxacin IVPB 400 mg 200 ml IVPB once over 60 mins Volume: 200 ml; Route: tl4 IVPB; Infused Over: 60 mins; Site: left antecubital; 21:57 Follow up: Response: No adverse reaction; IV Status: Completed infusion tl4 19:49 Drug: metroNIDAZOLE IVPB 500 mg 100 ml IVPB at 200 ml/hr once over 30 mins Volume: 100 tl4 ml; Route: IVPB; Rate: 200 ml/hr; Infused Over: 30 mins; Site: left antecubital; 21:57 Follow up: Response: No adverse reaction; IV Status: Completed infusion tl4 Medication: 17:25 VIS not applicable for this client. tl4 Intake: 18:40 IV: 1000ml; Total: 1000ml. tl4 21:57 IV: 1000ml; Total: 2000ml. tl4 Outcome: 18:57 Decision to Hospitalize by Provider. andreina 21:58 Admitted to Med/surg tl4 21:58 Condition: stable 21:58 Instructed on the need for admit, 21:58 Patient left the ED. tl4 Signatures: Dispatcher [employer] EDHolland Araujo MD MD cha Brown, Sophia, PA-C PA-C [email or web address] Nishi Crabtree RN RN cm10 Jude Wilde RN RN tl4 Fariba Martínez 3
[2024-08-12] MEDS ORDERED: ACETAMINOPHEN 500 MG TAB PO PRN (19:40)
--- NOTE | 2024-08-12 19:42 | RAD REPORT ---
EXAM DESCRIPTION: CT - Abdomen Pelvis W Contrast - 08/12/2024 7:15 pm CLINICAL HISTORY: Abdominal pain COMPARISON: 2019 TECHNIQUE: Computed axial tomography of the abdomen pelvis was obtained. 100 cc Isovue-300 was admin istered intravenously. Oral contrast was not requested which limits evaluation of bowel and appendix All CT scans are performed using dose optimization technique as appropriate and may include automated exposure control or mA/KV adjustment according to patient size. FINDINGS: The liver, spleen, pancreas, adrenal and kidneys appear unremarkable. There is no evidence of diverticulitis. The wall of the several loops of small bowel are thickened. Edema is present within the mesentery. Small amount ascites within the abdomen and pelvis. Normal appendix Small inguinal hernias IMPRESSION: Thickening of the wall of several loops of small bowel may indicate inflammation
--- NOTE | 2024-08-12 19:47 | P.HP ---
Certification for Inpatient Patient admitted to: Inpatient With expected LOS: >2 Midnights Practitioner: I am a practitioner with admitting privileges, knowledge of patient current condition, hospital course, and medical plan of care. Services: Services provided to patient in accordance with Admission requirements found in Title 42 Section 412.3 of the Code of Federal Regulations Patient History Date of Service: 08/12/24 Reason for admission: Abdominal pain History of Present Illness: Patient is a 43-year-old female from [place] descent with a past medical history of thalassemia, Jemal thyroiditis/, ileitis and morbid obesity. She presented to the ER complaining of abdominal pain ongoing for the past few days. Associated symptoms include nausea and vomiting. Patient denies hematochezia, fevers or chills. CT abdomen and pelvis revealed evidence of ileitis. As stated above, patient has a known history of ileitis and has been scoped before 4 years ago. Allergies aspirin Allergy (Verified 07/18/20 21:34) Hives coconut Allergy (Verified 08/01/19 23:35) Hives ibuprofen Allergy (Verified 08/01/19 23:35) Hives peanut Allergy (Verified 08/01/19 23:35) Hives NSAIDS Allergy (Mild, Uncoded 08/01/19 23:36) Hives Home Medications: Albuterol Inhaler [Ventolin Inhaler*] 1 puff IH PRN PRN 08/01/19 Ethinyl Estradiol/Drospirenone [Loren 28 Tablet] 1 pill PO BEDTIME 08/01/19 Montelukast [Singulair*] 10 mg PO BEDTIME 08/01/19 Spironolactone [Aldactone*] 100 mg PO BEDTIME 08/01/19 Synthroid 175 mcg PO DAILY 08/01/19 lisinopriL [Prinivil*] 10 mg PO BEDTIME 08/01/19 Ondansetron [Zofran (Odt)*] 4 mg PO Q6H PRN #20 tab 08/03/19 Fluticasone Propion/Salmeterol [Advair 250-50 Diskus] 07/18/20 Amox/Clavulanate [Augmentin 875-125 Tab] 1 each PO BID #14 tab 07/19/20 - Past Medical/Surgical History Diabetic: No -: Thalassemia -: Asthma -: Seasonal allergies -: Hashimotos -: PCOS - Social History Alcohol use: No CD- Drugs: No Caffeine use: Yes Physical Examination - Physical Exam General: In no apparent distress, Obese HEENT: Atraumatic, Normocephalic Respiratory: Clear to auscultation bilaterally, Normal air movement Cardiovascular: No edema, Normal pulses, Regular rate/rhythm, Normal S1 S2 Gastrointestinal: Soft and benign, Tenderness Neurological: Normal speech - Studies Laboratory Data (last 24 hrs) 08/12/24 08/12/24 08/12/24 17:14 17:14 17:14 WBC 17.20 H Hgb 12.1 Hct 38.1 Plt Count 463 H PT 11.6 INR 1.04 APTT 31.3 Sodium 135 L Potassium 4.2 BUN 10 Creatinine 0.88 Glucose 120 H Total Bilirubin 0.7 AST 27 ALT 40 Alkaline Phosphatase 87 Lipase 27 Assessment and Plan - Problems (Diagnosis) (1) Morbid (severe) obesity due to excess calories Current Visit: Yes Status: Acute (2) Jemal thyroiditis Current Visit: Yes Status: Acute (3) Thalassanemia Current Visit: Yes Status: Acute - Plan Assessment Patient is a 53-year-old female who is being admitted for abdominal pain. She was found to have ileitis. Patient is not septic. Ileitis Leukocytosis Morbid obesity Jemal's thyroiditis Thalassemia Plan: Will admit for supportive care Start patient on Zosyn and IV fluid If she responds, she can be discharged on levofloxacin and Flagyl Resume home medication upon reconciliation Patient is full code - Advance Directives Does patient have a Living Will: No Does patient have a Durable POA for Healthcare: No
[2024-08-12] MEDS ORDERED: D5 0.45 NS 1,000 ML IV SCH (20:00)
[2024-08-12 20:02] LABS: Magnesium 1.9 mg/dL (1.6-2.4); Phosphorus 3.1 mg/dL (2.5-4.9)
[2024-08-12] MEDS: ONDANSETRON 4 MG/2 ML VIAL IV PRN (20:51)
[2024-08-12] MEDS ORDERED: PIPER TAZO 3.375 GM in NA CHLORIDE 0.9% 100 ML IV SCH (21:00)
[2024-08-12 22:28] VITALS: O2SAT 100
[2024-08-12] MEDS: IPRATROPIUM BROM 0.5MG/2.5ML NEB SCH (22:37)
[2024-08-12] MEDS: ALBUTEROL 2.5 MG/3 ML NEB SOL NEB SCH (22:38)
[2024-08-12] MEDS: PIPER TAZO 3.375 GM in NA CHLORIDE 0.9% 100 ML IV SCH (22:42)
[2024-08-12] MEDS: D5 0.45 NS 1,000 ML IV SCH (22:42)
[2024-08-12] MEDS: HYDROMORPHONE HCL 1 MG/ML INJ IV PRN (22:49)
[2024-08-12 23:24] VITALS: BMI 46.5
[2024-08-13 06:36] LABS: Absolute Basophils 0.1 K/uL (0-0.5); Absolute Eosinophils 0.2 K/uL (0-0.5); Absolute Lymphocytes (CBC) 2.2 K/uL (0.7-4.9); Absolute Monocytes 0.8 K/uL (0.1-1.3); Absolute Neutrophil 8.6 K/uL (1.8-8.0); Basophils % 0.7 % (0-1.3); Eosinophils % 1.3 % (0-4.4); Hematocrit 32.1 % (36.0-45.0); Hemoglobin 9.8 g/dL (12.0-15.0); Lymphocytes % 18.9 % (15.3-44.8); MCH 18.6 pg (27.0-35.0); MCHC 30.5 g/dL (32.0-36.0); MCV 61.2 fL (80-100); MPV 9.2 fL (7.6-11.3); Monocytes % 6.7 % (3.3-12.3); Neutrophils % 72.4 % (41.7-73.7); Platelets 339 thou/uL (152-406); RBC Red Blood Cell Count 5.24 M/uL (3.86-4.86); Red Cell Distribution Width 15.7 % (12.1-15.2)
[2024-08-13] MEDS: PROMETHAZINE INJ 25 MG/ML AMP IV ONE (08:15)
--- NOTE | 2024-08-13 10:59 | P.PN ---
Subjective Date of Service: 08/13/24 Chief Complaint: Abdominal pain Pt is resting comfortably in bed. She reports mild abdominal pain. Pt is getting zosyn for ileitis. No other complaints. Review of Systems General: Unremarkable Eyes: Unremarkable ENT: Unremarkable Respiratory: Unremarkable Cardiovascular: Unremarkable Gastrointestinal: Abdominal Pain Genitourinary: Unremarkable Musculoskeletal: Unremarkable Integumentary: Unremarkable Neurological: Unremarkable Lymphatics: Unremarkable Physical Examination - Vital Signs Temperature: 97 F Blood Pressure: 141/82 Pulse: 84 Respirations: 16 Pulse Ox (%): 98 - Physical Exam General: Alert, In no apparent distress, Oriented x3 HEENT: Atraumatic, Normocephalic, PERRLA Neck: Supple, 2+ carotid pulse no bruit, JVD not distended Respiratory: Clear to auscultation bilaterally, Normal air movement Cardiovascular: No edema, Normal pulses, Regular rate/rhythm, Normal S1 S2 Capillary refill: <2 Seconds Gastrointestinal: Normal bowel sounds, Soft and benign, Non-distended Musculoskeletal: No clubbing, No swelling, No contractures Integumentary: No rashes, No breakdown, No significant lesion Neurological: Normal gait, Normal speech, Normal strength at 5/5 x4 extr Lymphatics: No axilla or inguinal lymphadenopathy - Studies Laboratory Data (last 24 hrs) 08/12/24 08/12/24 08/12/24 17:14 17:14 17:14 WBC Hgb Hct Plt Count PT 11.6 INR 1.04 APTT 31.3 Sodium 135 L Potassium 4.2 BUN 10 Creatinine 0.88 Glucose 120 H Phosphorus 3.1 Magnesium 1.9 Total Bilirubin 0.7 AST 27 ALT 40 Alkaline Phosphatase 87 Lipase 27 08/12/24 17:14 WBC 17.20 H Hgb 12.1 Hct 38.1 Plt Count 463 H PT INR APTT Sodium Potassium BUN Creatinine Glucose Phosphorus Magnesium Total Bilirubin AST ALT Alkaline Phosphatase Lipase Assessment And Plan - Plan Sepsis 2/2 Ileitis: Will continue iv zosyn and f/u blood cx. Will dc with levaquin and flagyl. Leukocytosis: WBC is trending 11.9 <- 17. Due to ileitis. Will continue iv zosyn. Morbid obesity: Pt was advised to lose weight. Jemal's thyroiditis: Will check TSH. Thalassemia: Hgb is 9.8. Will monitor H/H. DVT ppx: SCD Code: full Dispo: Pending hospital course.
[2024-08-13] MEDS: ETHINYL ESTRADIOL PO SCH (21:56)
[2024-08-13] MEDS: DROSPIRENONE PO SCH (21:56)
[2024-08-13] MEDS: SYNTHROID 137 MCG PO SCH (21:56)
[2024-08-13] MEDS: LEVOTHYROXINE SOD 0.025 MG TAB PO SCH (22:42)
[2024-08-13] MEDS: LEVOTHYROXINE SOD 0.112 MG TAB PO SCH (22:42)
[2024-08-13] MEDS: SPIRONOLACTONE 25 MG TABLET PO SCH (22:57)
[2024-08-13] MEDS: MONTELUKAST 10 MG TAB PO SCH (22:58)
[2024-08-13] MEDS: lisinopriL 10 MG TAB PO SCH (22:58)
[2024-08-14 08:26] LABS: Absolute Basophils 0.1 K/uL (0-0.5); Absolute Eosinophils 0.4 K/uL (0-0.5); Absolute Lymphocytes (CBC) 2.1 K/uL (0.7-4.9); Absolute Monocytes 0.8 K/uL (0.1-1.3); Absolute Neutrophil 7.2 K/uL (1.8-8.0); Basophils % 0.6 % (0-1.3); Eosinophils % 3.6 % (0-4.4); Hematocrit 30.6 % (36.0-45.0); Hemoglobin 9.5 g/dL (12.0-15.0); Lymphocytes % 20.3 % (15.3-44.8); MCH 18.8 pg (27.0-35.0); MCV 60.8 fL (80-100); MPV 8.9 fL (7.6-11.3); Monocytes % 7.2 % (3.3-12.3); Neutrophils % 68.3 % (41.7-73.7); Platelets 329 thou/uL (152-406); RBC Red Blood Cell Count 5.03 M/uL (3.86-4.86); Red Cell Distribution Width 15.6 % (12.1-15.2)
[2024-08-14 08:29] LABS: Anion Gap 10.5 mEq/L (5.0-15.0); Potassium 3.5 mEq/L (3.5-5.1)
[2024-08-14] MEDS: ONDANSETRON 4 MG (ODT) TAB PO PRN (08:31)
[2024-08-14] MEDS: SALMETEROL PO SCH (09:00)
[2024-08-14] MEDS: FLUTICASONE PROPION PO SCH (09:00)
[2024-08-14 09:04] VITALS: BP 131/71; TEMP 98
--- NOTE | 2024-08-14 10:59 | P.DS ---
Admission Date: 08/12/24 Discharge Date: 08/14/24 Disposition: ROUTINE DISCHARGE Discharge Condition: GOOD Reason for Admission: Abdominal pain Brief History of Present Illness: Patient is a 43-year-old female from [place] descent with a past medical history of thalassemia, Jemal thyroiditis/, ileitis and morbid obesity. She presented to the ER complaining of abdominal pain ongoing for the past few days. Associated symptoms include nausea and vomiting. Patient denies hematochezia, fevers or chills. CT abdomen and pelvis revealed evidence of ileitis. As stated above, patient has a known history of ileitis and has been scoped before 4 years ago. Hospital Course: Patient is a 43yo female from [place] descent with a past medical history of thalassemia, Jemal thyroiditis/, ileitis and morbid obesity who presented with abdominal pain for a few days. The abdominal pain was associated with nausea and vomiting. On admission, CT abd showed ileitis. We admitted pt and gave iv zosyn. The WBC trended down and pt requested to be discharged. We discharged her with cipro and flagyl for 10 more days. Pt was advised to lose weight and follow up with PCP and GI in clinic. She was in NAD prior to dis charge. Vital Signs/Physical Exam: Temp Pulse Resp BP Pulse Ox 98.0 F 90 16 131/71 97 08/14/24 08:00 08/14/24 08:00 08/14/24 09:01 08/14/24 08:00 08/14/24 09:01 Laboratory Data at Discharge: WBC 10.50 thou/uL (4.3-10.9) 08/14/24 08:04 Hgb 9.5 g/dL (12.0-15.0) L 08/14/24 08:04 Hct 30.6 % (36.0-45.0) L 08/14/24 08:04 Plt Count 329 thou/uL (152-406) 08/14/24 08:04 PT 11.6 SECONDS (9.4-12.5) 08/12/24 17:14 INR 1.04 08/12/24 17:14 APTT 31.3 SECONDS (24.3-36.9) 08/12/24 17:14 Sodium 139 mEq/L (136-145) 08/14/24 08:04 Potassium 3.5 mEq/L (3.5-5.1) 08/14/24 08:04 BUN 4 mg/dL (7-18) L 08/14/24 08:04 Creatinine 0.71 mg/dL (0.55-1.02) 08/14/24 08:04 Glucose 96 mg/dL (74-106) 08/14/24 08:04 Phosphorus 3.1 mg/dL (2.5-4.9) 08/12/24 17:14 Magnesium 1.9 mg/dL (1.6-2.4) 08/12/24 17:14 Total Bilirubin 0.7 mg/dL (0.2-1.0) 08/12/24 17:14 AST 27 U/L (15-37) 08/12/24 17:14 ALT 40 U/L (13-56) 08/12/24 17:14 Alkaline Phosphatase 87 U/L (45-117) 08/12/24 17:14 Lipase 27 U/L (13-75) 08/12/24 17:14 Home Medications: Ethinyl Estradiol/Drospirenone [Loren 28 Tablet] 1 pill PO BEDTIME 08/01/19 Montelukast [Singulair*] 10 mg PO BEDTIME 08/01/19 Spironolactone [Aldactone*] 50 mg PO BEDTIME 08/01/19 Synthroid 137 mcg PO DAILY 08/01/19 lisinopriL [Prinivil*] 10 mg PO BEDTIME 08/01/19 Ondansetron [Zofran (Odt)*] 4 mg PO Q6H PRN #20 tab 08/03/19 Fluticasone Propion/Salmeterol [Advair 250-50 Diskus] 250 mcg PO DAILY 07/18/20 Ciprofloxacin HCl [Cipro 500 MG Tablet] 500 mg PO BID 10 Days #20 tab 08/14/24 Hydrocodone 10/APAP 325 [Ernest 10/325] 1 tab PO Q6H PRN 3 Days #12 tab 08/14/24 metroNIDAZOLE [Flagyl] 500 mg PO Q8H 10 Days #30 tab 08/14/24 New Medications: Ciprofloxacin HCl [Cipro 500 MG Tablet] 500 mg PO BID 10 Days #20 tab metroNIDAZOLE [Flagyl] 500 mg PO Q8H 10 Days #30 tab Hydrocodone 10/APAP 325 [Ernest 10/325] 1 tab PO Q6H PRN 3 Days #12 tab PRN Reason: Pain Physician Discharge Instructions: Continue ad aleah activity as tolerated. take Cipro and flagyl as prescribed for the next 10 days. Follow up with PCP and GI within 1 - 2 weeks Diet: AHA Activity: Ad aleah Followup: Lavonne Barillas MD [Primary Care Provider] - Samuel Quinn MD [ASSOCIATE-ACTIVE - CAN ADMIT] -
== END 2024-08-14 12:28 | disposition home or self-care (01) | DRG 872 ==
LOC: ER 15:10 → ERHOLD 19:40 → 2ND 20:37
PROVIDERS: ADMIT Internal Medicine; ATTEND Hospitalist
DX: A41.9 Sepsis, unspecified organism (principal); Z68.42 Body mass index [BMI] 45.0-49.9, adult; A08.4 Viral intestinal infection, unspecified; E66.01 Morbid (severe) obesity due to excess calories; E06.3 Autoimmune thyroiditis; E28.2 Polycystic ovarian syndrome; D56.9 Thalassemia, unspecified; J45.909 Unspecified asthma, uncomplicated; D72.829 Elevated white blood cell count, unspecified; Z79.82 Long term (current) use of aspirin; Z91.010 Allergy to peanuts; Z91.018 Allergy to other foods; Z79.890 Hormone replacement therapy; Z79.899 Other long term (current) drug therapy
CPT/HCPCS: 36415; 74177; 80048; 80053; 81001; 81025; 83605; 83690; 83735; 84100; 84443; 85025; 85610; 85730; 87040; 94640; 96361; 96365; 96366; 96368; 96375; 99285; J0744; J1170; J2405; J2543; J2550; J7030; J7613; J7644; J7799; Q0162; Q9967